=== PATIENT | female | born 1940 | race Caucasian/White ===

== ENCOUNTER → 2016-05-28 | Outpatient (CLI) | payer MEDICARE, OTHER ==
--- NOTE | 2016-05-29 11:06 | MM ---
Reason for exam: screening (asymptomatic). Last mammogram was performed 1 year and 2 months ago. Physical Findings: A clinical breast exam by your physician is recommended on an annual basis and results should be correlated with mammographic findings. MG 3D Screening Mammo W/Cad Bilateral CC and MLO view(s) were taken. Prior study comparison: March 17, 2015, mammogram, performed at [facility]. April 01, 2014, mammogram, performed at [facility]. The breast tissue is heterogeneously dense. This may lower the sensitivity of mammography. No significant changes when compared with prior studies. ASSESSMENT: Benign, BI-RAD 2 RECOMMENDATION: Routine screening mammogram of both breasts in 1 year.
== END | disposition home or self-care (01) ==
LOC: RADMAMWWP 06:50
PROVIDERS: ATTEND Family Medicine
DX: Z12.31 Encounter for screening mammogram for malignant neoplasm of breast (principal)
CPT/HCPCS: 77052; 77063; G0202

== ENCOUNTER 2016-08-18 10:51 | Emergency (ER) | payer MEDICARE, OTHER ==
--- NOTE | 2016-08-18 12:04 | ED ---
Fall HPI - General Chief Complaint: Fall Stated Complaint: FALL, HEAD AND FACIAL INJURY Time Seen by Provider: 08/18/16 11:32 Source: patient Mode of arrival: ambulatory - History of Present Illness Initial Comments: 76-year-old female patient presents to emergency department after splinting a fall at home around 02 15. Patient states she tripped over a box and fell hitting her face and head on a doorknob. She denies any loss of consciousness, but states she has been seeing wavy lines in her vision since the fall. Patient denies any headache, neck pain, back pain, nausea, or vomiting since the incident. Patient states she also did strike her left shoulder and left knee, and is complaining of some tingling to the fourth and fifth digit on the left hand. Patient denies any complaints of left shoulder or the left knee and denies any issues with range of motion. Denies any chest pain, shortness of breath, weakness, or dizziness. - Related Data Home Medications Medication Instructions Recorded Confirmed Albuterol Inhaler [Ventolin Hfa 1 puff INHALATION DIRECTED PRN 09/20/1508/18 Inhaler] Multivitamins, Thera [Multivitamin] 1 tab PO DAILY 09/20/15 08/18/16 Allergies Allergy/AdvReac Type Severity Reaction Status Date / Time codeine Allergy headache Verified 08/18/16 11:27 sulfamethoxazole Allergy "does not Verified 08/18/16 11:27 [From Bactrim] work" trimethoprim [From Bactrim] Allergy "does not Verified 08/18/16 11:27 work" Review of Systems ROS Statement: Those systems with pertinent positive or pertinent negative responses have been documented in the HPI. ROS Other: All systems not noted in ROS Statement are negative. Past Medical History Past Medical History: Asthma History of Any Multi-Drug Resistant Organisms: None Reported Past Surgical History: Bladder Surgery, Hysterectomy Past Psychological History: No Psychological Hx Reported Smoking Status: Never smoker Past Alcohol Use History: None Reported Past Drug Use History: None Reported General Exam Limitations: no limitations General appearance: alert, in no apparent distress Head exam: Present: other (Abrasion to left cheek) Eye exam: Present: normal appearance, PERRL, EOMI. Absent: scleral icterus, conjunctival injection, periorbital swelling ENT exam: Present: normal exam, normal oropharynx, mucous membranes moist Neck exam: Present: normal inspection, full ROM. Absent: tenderness, meningismus, lymphadenopathy Respiratory exam: Present: normal lung sounds bilaterally. Absent: respiratory distress, wheezes, rales, rhonchi, stridor Cardiovascular Exam: Present: regular rate, normal rhythm, normal heart sounds. Absent: systolic murmur, diastolic murmur, rubs, gallop, clicks GI/Abdominal exam: Present: soft, normal bowel sounds. Absent: distended, tenderness, guarding, rebound, rigid Extremities exam: Present: normal inspection, full ROM, normal capillary refill , other (Ecchymosis noted to anterior left knee, no swelling. Full range of motion to left shoulder, left elbow, left wrist, left knee without crepitus.). Absent: tenderness, pedal edema, joint swelling, calf tenderness Back exam: Present: normal inspection. Absent: tenderness Neurological exam: Present: alert, oriented X3, CN II-XII intact Psychiatric exam: Present: normal affect, normal mood Skin exam: Present: warm, dry, intact, normal color. Absent: rash Course Vital Signs 08/18/16 11:23 Temperature 97.4 F L Pulse Rate 69 Respiratory 16 Rate Blood Pressure 201/85 O2 Sat by Pulse 99 Oximetry Medical Decision Making - Medical Decision Making 76-year-old female patient presents for evaluation after a fall this morning. Patient did have a CT of the brain and C-spine which showed no acute osseous abnormalities. No intracranial hemorrhage, mass effect, or midline shift. Patient will be discharged home with instructions regarding return parameters. Instructed to follow-up with primary care physician one to 2 days for recheck. Instructed to return for any worsening, new, or concerning symptoms. - Radiology Data Radiology results: report reviewed CT of the pain and cervical spine without contrast impression by Dr. Johns reveals no acute fracture or dislocation evident in the cervical spine. Mild loss when necessary plate height of T1 and T2 which may be chronic. No acute intracranial hemorrhage, mass effect, or midline shift is seen. Disposition Clinical Impression: Head injury, Contusion, Abrasion Disposition: HOME SELF-CARE Condition: Stable Instructions: Fall Prevention for Older Adults (ED), Head Injury (ED), Abrasion (ED), Contusion in Adults (ED) Additional Instructions: Return for any new, worsening, or concerning symptoms. Follow-up with primary care physician for recheck in one to 2 days. Referrals: Davis Mckeon MD [Primary Care Provider] - 1-2 days Time of Disposition: 12:31
--- NOTE | 2016-08-18 12:23 | CT ---
EXAMINATION TYPE: CT brain demetris salas con DATE OF EXAM: 08/18/2016 12:09 PM COMPARISON: NONE HISTORY: fall CT DLP: 1459.8 mGycm Automated exposure control for dose reduction was used. TECHNIQUE: CT scan of the head and cervical spine are performed without contrast. FINDINGS: There is no acute intracranial hemorrhage, mass effect, or midline shift identified. The ventricles and sulci are within normal limits in size. The globes are intact and the visualized sin uses are clear. Assessment spinal canal limited due to noncontrast technique. There is multilevel degenerative disc d isease and posterior spondylosis with arthropathy. Multilevel foraminal encroachment. Mild loss of barbosa perior endplate height at T1 and T2 with no evidence of retropulsion. Posterior elements intact. IMPRESSION: 1. There is no acute fracture or dislocation evident in the cervical spine. There is mild loss superi or endplate height of T1 and T2 which may be chronic. Correlate clinically to exclude acute mild supe rior endplate deformity. No retropulsion or canal stenosis. No posterior endplate involvement. Bone s can or MRI could obtain a follow up basis to exclude chronicity of the minimal superior endplate comp ression deformity 2. No acute intracranial hemorrhage, mass effect, or midline shift is seen.
[2016-08-18 12:35] VITALS: BP 163/74; PULSE 58; RESP 18; TEMP 97.7
== END 2016-08-18 12:50 | disposition home or self-care (01) ==
LOC: EC 10:51
DX: S80.02XA Contusion of left knee, initial encounter (principal); S00.81XA Abrasion of other part of head, initial encounter; Z79.899 Other long term (current) drug therapy; Z88.1 Allergy status to other antibiotic agents; Z88.5 Allergy status to narcotic agent; W01.198A Fall on same level from slipping, tripping and stumbling with subsequent striking against other object, initial encounter; Y92.008 Other place in unspecified non-institutional (private) residence as the place of occurrence of the external cause
CPT/HCPCS: 70450; 72125; 99283

== ENCOUNTER 2016-10-09 09:14 | Observation (INO) | payer MEDICARE, OTHER ==
[2016-10-09] MEDS ORDERED: SODIUM CHLORIDE 0.9% 500 ML IV STA (09:40)
[2016-10-09] MEDS ORDERED: ASPIRIN 81 MG CHEW PO STA (09:40)
--- NOTE | 2016-10-09 09:47 | ED ---
Back Pain HPI - General Chief Complaint: Back Pain/Injury Stated Complaint: back and abd pain Time Seen by Provider: 10/09/16 09:33 Source: patient, RN notes reviewed Limitations: no limitations - History of Present Illness Initial Comments: 76-year-old female presents to the emergency Department chief complaint of left- sided shoulder pain. Patient states that she has been feeling off for the past 10 days or so. Patient states she is feeling weak she is feeling nauseous she is not feeling like herself. Patient states that then today she developed discomfort of left shoulder pain that radiated to the left chest. Patient states that it is sometimes tender to touch also also feels deeper and more sedated severe than that. Patient denies any diaphoresis with this any actual vomiting but she has had the nausea. Patient denies any use of the shoulder any injury to the shoulder. Patient states she was concerned due to her symptoms so she thought that she should be evaluated. Patient denies any recent fever, chills, shortness of breath, back pain, abdominal pain, vomiting, numbness or tingling, dysuria or hematuria, constipation or diarrhea, headaches or visual changes, or any other current symptoms. - Related Data Home Medications Medication Instructions Recorded Confirmed Albuterol Inhaler [Ventolin Hfa 1 puff INHALATION DIRECTED PRN 09/20/1510/09 Inhaler] Multivitamins, Thera [Multivitamin] 1 tab PO DAILY 09/20/15 10/09/16 Allergies Allergy/AdvReac Type Severity Reaction Status Date / Time codeine Allergy headache Verified 10/09/16 09:42 sulfamethoxazole Allergy "does not Verified 10/09/16 09:42 [From Bactrim] work" trimethoprim [From Bactrim] Allergy "does not Verified 10/09/16 09:42 work" Review of Systems ROS Statement: Those systems with pertinent positive or pertinent negative responses have been documented in the HPI. ROS Other: All systems not noted in ROS Statement are negative. Past Medical History Past Medical History: Asthma History of Any Multi-Drug Resistant Organisms: None Reported Past Surgical History: Bladder Surgery, Hysterectomy Past Psychological History: No Psychological Hx Reported Smoking Status: Never smoker Past Alcohol Use History: None Reported Past Drug Use History: None Reported General Exam - General Exam Comments Initial Comments: General: The patient is awake and alert, in no distress, and does not appear acutely ill. Eye: Pupils are equal, round and reactive to light, extra-ocular movements are intact; there is normal conjunctiva bilaterally. No signs of icterus. Ears, nose, mouth and throat: There are moist mucous membranes and no oral lesions. Neck: The neck is supple, there is no tenderness. Cardiovascular: There is a regular rate and rhythm. No murmur, rub or gallop is appreciated. Respiratory: Lungs are clear to auscultation, respirations are non-labored, breath sounds are equal. No wheezes, stridor, rales, or rhonchi. Gastrointestinal: Soft, non-distended, non-tender abdomen without masses or organomegaly noted. There is no rebound or guarding present. No CVA tenderness. Bowel sounds are unremarkable. Back: There is no tenderness to palpation in the midline. There is no obvious deformity. No rashes noted. Musculoskeletal: Normal ROM, patient does have some upper tenderness to the left shoulder. Tenderness along left lateral chest wall as well., There is no pedal edema. There is no calf tenderness or swelling. Sensation intact. Pulses equal bilaterally 2+. Neurological: CN II-XII intact, There are no obvious motor or sensory deficits. Coordination appears grossly intact. Speech is normal. Skin: Skin is warm and dry and no rashes or lesions are noted. Psychiatric: Cooperative, appropriate mood & affect, normal judgment. Limitations: no limitations Course Vital Signs 10/09/16 10/09/16 10/09/16 09:15 09:30 11:38 Temperature 98.0 F 97.7 F 97.7 F Pulse Rate 74 68 65 Respiratory 17 16 16 Rate Blood Pressure 151/77 165/73 150/70 O2 Sat by Pulse 98 98 97 Oximetry - Reevaluation(s) Reevaluation #1: 10/09/16 12:26 Patient is currently pain free. Medical Decision Making - Medical Decision Making 76-year-old female presents with nausea and left shoulder pain. This time there is concern there could be a cardiac component due to the nausea with the patient's pain. Also with radiation into the chest. At this time we will admit the patient for cardiac rule out. This is discussed with the patient and she is in agreement with plan. - Lab Data Result diagrams: 10/09/16 10:05 10/09/16 10:05 Lab Results 10/09/16 10/09/1610/09/17 Range/Units 10:05 10:05 10:05 WBC 16.7 H (3.8-10.6) k/uL RBC 4.25 (3.80-5.40) m/uL Hgb 13.1 (11.4-16.0) gm/dL Hct 39.7 (34.0-46.0) % MCV 93.2 (80.0-100.0) fL MCH 30.8 (25.0-35.0) pg MCHC 33.1 (31.0-37.0) g/dL RDW 13.6 (11.5-15.5) % Plt Count 324 (150-450) k/uL Neutrophils % 87 % Lymphocytes % 6 % Monocytes % 7 % Eosinophils % 0 % Basophils % 0 % Neutrophils # 14.4 H (1.3-7.7) k/uL Lymphocytes # 1.0 (1.0-4.8) k/uL Monocytes # 1.1 H (0-1.0) k/uL Eosinophils # 0.0 (0-0.7) k/uL Basophils # 0.0 (0-0.2) k/uL PT (9.0-12.0) sec INR (<1.1) APTT (22.0-30.0) sec D-Dimer (<0.60) mg/L FEU Sodium 140 (137-145) mmol/L Potassium 4.3 (3.5-5.1) mmol/L Chloride 106 (98-107) mmol/L Carbon Dioxide 22 (22-30) mmol/L Anion Gap 12 mmol/L BUN 19 H (7-17) mg/dL Creatinine 0.94 (0.52-1.04) mg/dL Est GFR (MDRD) Af Amer >60 (>60 ml/min/1.73 sqM) Est GFR (MDRD) Non-Af 58 (>60 ml/min/1.73 sqM) Glucose 107 H (74-99) mg/dL Calcium 9.4 (8.4-10.2) mg/dL Magnesium 1.9 (1.6-2.3) mg/dL Total Bilirubin 1.0 (0.2-1.3) mg/dL AST 9 L (14-36) U/L ALT 29 (9-52) U/L Alkaline Phosphatase 88 (38-126) U/L Total Creatine Kinase 88 (30-135) U/L CK-MB (CK-2) 1.8 (0.0-2.4) ng/mL CK-MB (CK-2) Rel Index 2.0 Troponin I <0.012 (0.000-0.034) ng/mL Total Protein 7.0 (6.3-8.2) g/dL Albumin 4.2 (3.5-5.0) g/dL Urine Color Urine Appearance (Clear) Urine pH (5.0-8.0) Ur Specific [place] (1.001-1.035) Urine Protein (Negative) Urine Glucose (UA) (Negative) Urine Ketones (Negative) Urine Blood (Negative) Urine Nitrite (Negative) Urine Bilirubin (Negative) Urine Urobilinogen (<2.0) mg/dL Ur Leukocyte Esterase (Negative) 10/09/16 10/09/16 10/09/16 Range/Units 10:05 10:05 11:00 WBC (3.8-10.6) k/uL RBC (3.80-5.40) m/uL Hgb (11.4-16.0) gm/dL Hct (34.0-46.0) % MCV (80.0-100.0) fL MCH (25.0-35.0) pg MCHC (31.0-37.0) g/dL RDW (11.5-15.5) % Plt Count (150-450) k/uL Neutrophils % % Lymphocytes % % Monocytes % % Eosinophils % % Basophils % % Neutrophils # (1.3-7.7) k/uL Lymphocytes # (1.0-4.8) k/uL Monocytes # (0-1.0) k/uL Eosinophils # (0-0.7) k/uL Basophils # (0-0.2) k/uL PT 10.4 (9.0-12.0) sec INR 1.0 (<1.1) APTT 23.7 (22.0-30.0) sec D-Dimer 1.24 H (<0.60) mg/L FEU Sodium (137-145) mmol/L Potassium (3.5-5.1) mmol/L Chloride (98-107) mmol/L Carbon Dioxide (22-30) mmol/L Anion Gap mmol/L BUN (7-17) mg/dL Creatinine (0.52-1.04) mg/dL Est GFR (MDRD) Af Amer (>60 ml/min/1.73 sqM) Est GFR (MDRD) Non-Af (>60 ml/min/1.73 sqM) Glucose (74-99) mg/dL Calcium (8.4-10.2) mg/dL Magnesium (1.6-2.3) mg/dL Total Bilirubin (0.2-1.3) mg/dL AST (14-36) U/L ALT (9-52) U/L Alkaline Phosphatase (38-126) U/L Total Creatine Kinase (30-135) U/L CK-MB (CK-2) (0.0-2.4) ng/mL CK-MB (CK-2) Rel Index Troponin I (0.000-0.034) ng/mL Total Protein (6.3-8.2) g/dL Albumin (3.5-5.0) g/dL Urine Color Light Yellow Urine Appearance Clear (Clear) Urine pH 6.0 (5.0-8.0) Ur Specific [place] 1.006 (1.001-1.035) Urine Protein Negative (Negative) Urine Glucose (UA) Negative (Negative) Urine Ketones Negative (Negative) Urine Blood Negative (Negative) Urine Nitrite Negative (Negative) Urine Bilirubin Negative (Negative) Urine Urobilinogen <2.0 (<2.0) mg/dL Ur Leukocyte Esterase Negative (Negative) - EKG Data -: EKG Interpreted by 10/09/16 11:12 normal sinus rhythm 65 bpm, normal axis, no atopy, no S-T depressions or elevations, - Radiology Data Radiology results: report reviewed, image reviewed Disposition Clinical Impression: Unstable angina Disposition: ADMITTED IP TO THIS [facility] Condition: Stable Referrals: Davis Mckeon MD [Primary Care Provider] - 1-2 days Time of Disposition: 12: Decision Date: 10/09/16 Decision Time: 12:27
--- NOTE | 2016-10-09 10:22 | XR ---
EXAMINATION TYPE: XR chest 2V DATE OF EXAM: 10/09/2016 10:19 AM COMPARISON: NONE TECHNIQUE: PA and lateral views submitted. HISTORY: Chest pain FINDINGS: The lungs are clear and there is no pneumothorax, pleural effusion, or focal pneumonia. Degenerativ e change of the spine noted. IMPRESSION: 1. No acute process.
--- NOTE | 2016-10-09 10:23 | XR ---
EXAMINATION TYPE: XR shoulder complete LT DATE OF EXAM: 10/09/2016 10:19 AM COMPARISON: NONE HISTORY: Pain TECHNIQUE: Three views are submitted. FINDINGS: The osseous structures are intact. There is no acute fracture or dislocation. Mild arthropathy AC meet int. Diffuse osteopenia. Ossification along the inferior margin of the humeral head is nonspecific ma y be post arthritic. There does appear to be narrowing of the glenohumeral joint. IMPRESSION: 1. Arthropathy of the shoulders.
[2016-10-09 10:27] LABS: Basophils % (A) 0 %; CH 31.1; CHCM 33.5; Eosinophils % (A) 0 %; HCT 39.7 % (34.0-46.0); HDW 2.19; HGB 13.1 gm/dL (11.4-16.0); Luc # (Auto) 0.14; Luc % (Auto) 1; Lymphocytes % (A) 6 %; MCH 30.8 pg (25.0-35.0); MCHC 33.1 g/dL (31.0-37.0); MCV 93.2 fL (80.0-100.0); Mean Platelet Volume 7.8; Monocytes # (A) 1.1 k/uL (0-1.0); Monocytes % (A) 7 %; Neutrophils # (A) 14.4 k/uL (1.3-7.7); Neutrophils % (A) 87 %; RBC 4.25 m/uL (3.80-5.40); RDW 13.6 % (11.5-15.5); WBC 16.7 k/uL (3.8-10.6); WBC (Perox) 16.29
[2016-10-09 10:31] LABS: ALT 29 U/L (9-52); AST 9 U/L (14-36); Alkaline Phosphatase 88 U/L (38-126); Anion Gap 12 mmol/L; Blood Urea Nitrogen 19 mg/dL (7-17); Calcium 9.4 mg/dL (8.4-10.2); Carbon Dioxide 22 mmol/L (22-30); Chloride 106 mmol/L (98-107); Glucose 107 mg/dL (74-99); Magnesium 1.9 mg/dL (1.6-2.3); Non-African American GFR(MDRD) 58 (>60 ml/min/1.73 sqM); Potassium 4.3 mmol/L (3.5-5.1); Sodium 140 mmol/L (137-145)
[2016-10-09 10:34] LABS: Partial Thromboplastin Time 23.7 sec (22.0-30.0); Prothrombin Time 10.4 sec (9.0-12.0)
[2016-10-09 10:51] LABS: Creatine Kinase 88 U/L (30-135)
[2016-10-09 11:03] LABS: Creatine Kinase MB 1.8 ng/mL (0.0-2.4); Troponin I <0.012 ng/mL (0.000-0.034)
[2016-10-09 11:05] LABS: Appearance,Urine Clear (Clear); Bilirubin,Urine Negative (Negative); Glucose,Urine (UA) Negative (Negative); Ketones,Urine Negative (Negative); Leukocyte Esterase,Urine Negative (Negative); Nitrite,Urine Negative (Negative); Protein,Urine Negative (Negative); Specific Gravity,Urine 1.006 (1.001-1.035); UA Billing (MACRO vs. MICRO) CHEM; Urobilinogen,Urine <2.0 mg/dL (<2.0)
[2016-10-09] MEDS ORDERED: RX INFO: IV CONTRAST WAS GIVEN 1 EACH MISC MISCELLANE PRN (11:40)
--- NOTE | 2016-10-09 12:19 | CT ---
EXAMINATION TYPE: CT angio chest DATE OF EXAM: 10/09/2016 11:58 AM COMPARISON: NONE HISTORY: Patient complains of upper back pain and pain beneath left breast. CT DLP: 320.5 mGycm Automated exposure control for dose reduction was used. CONTRAST: CTA scan of the thorax is performed with IV Contrast, patient injected with 80 mL of Visipaque 320, p ulmonary embolism protocol. FINDINGS: There is a 1.4 cm fatty deposit in a subpleural location at the right lung base. This likel y represents a small lipoma. There is dependent atelectasis in the dependent portions of the lungs. There is no significant axillary, internal mammary, mediastinal or hilar adenopathy. The contrast bolus is suboptimal. There are no large pulmonary emboli. The aorta is normal in caliber without evidence of dissection. There is no pleural or pericardial fluid. The heart is enlarged. There is a small sliding hiatal hernia. There is evidence of old granulomatous disease within the spleen. The remainder the visualized upper abdomen are unremarkable. There is mild hypertrophic spondylosis within the spine. No bony destructive lesion is seen. IMPRESSION: 1. THIS EXAMINATION IS SUBOPTIMAL BUT NEGATIVE FOR LARGE PULMONARY EMBOLI. 2. CARDIOMEGALY. 3. 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 4. 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 5. SMALL SLIDING HIATAL HERNIA. 6. MILD DEGENERATIVE CHANGE WITHIN THE SPINE.
[2016-10-09] MEDS ORDERED: HEPARIN SODIUM,PORCINE 5,000 UNIT/ML 1 ML VIAL IV ONE (12:28)
[2016-10-09] MEDS ORDERED: NITROGLYCERIN SL TABS 0.4 MG TAB SUBLINGUAL PRN (12:28)
[2016-10-09] MEDS ORDERED: ALBUTEROL NEBULIZED 2.5 MG/3 ML INHALATION PRN (12:29)
[2016-10-09] MEDS ORDERED: HEPARIN SODIUM,PORCINE/D5W PMX 25,000 UNIT in DEXTROSE/WATER 1 500ML.BAG IV SCH (12:30)
[2016-10-09] MEDS: SODIUM CHLORIDE 0.9% 1,000 ML IV SCH (13:44)
[2016-10-09 16:09] LABS: Creatine Kinase 70 U/L (30-135)
[2016-10-09 16:21] LABS: Creatine Kinase MB 1.8 ng/mL (0.0-2.4); Troponin I <0.012 ng/mL (0.000-0.034)
--- NOTE | 2016-10-09 16:32 | P.HPIM ---
History of Present Illness H&P Date: 10/09/16 Chief Complaint: Chest pain This is a pleasant 76-year-old lady patient of Dr. Lincoln Mckeon, she has underlying history off ALLERGY rhinitis or reactive airway disease and hyperlipidemia diet-controlled otherwise is in good health, presented to emergency room secondary to chest discomfort however she described this as a left hip pain aggravated by deep inspiration, and a left shoulder pain patient had persistence of these symptoms and was subsequently seen in emergency room. Patient has been fatigued for the past 10 days, no fever no chills no nausea no vomiting, patient does not have any previous MN no previous PE in the past which she took Aleve for the discomfort, patient denies any history of edema PE DVT no previous cardiac workup in the past 1. 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, and old granulomatous disease of the spleen, small sliding hiatal hernia Emergency room she does have a normal sinus rhythm with incomplete right bundle branch block, normal EKG otherwise no QT prolongation d-dimer was elevated at 1.24 troponins are 0.012 and 0.012, urinalysis negative Review of Systems Constitutional: Reports as per HPI, Reports anorexia, Reports lethargy, Denies chills, Denies chronic headaches, Denies chronic pain, Denies daytime sleepiness , Denies fatigue, Denies fever, Denies malaise, Denies night sweats, Denies poor appetite, Denies sweats, Denies weakness, Denies weight gain, Denies weight loss Ears, nose, mouth and throat: Reports as per HPI, Denies ant. neck pain, Denies bleeding gums, Denies dental pain, Denies dysphagia, Denies epistaxis, Denies headache, Denies hoarseness, Denies mouth pain, Denies nasal congestion, Denies nasal discharge, Denies neck fullness/pressure, Denies neck lump, Denies nose pain, Denies odynophagia, Denies post-nasal drip, Denies sinus pain, Denies sinus pressure, Denies swelling in mouth, Denies swelling in throat, Denies sore throat, Denies vertigo, Denies voice changes Cardiovascular: Reports as per HPI, Reports chest pain Respiratory: Reports as per HPI, Denies congestion, Denies cough, Denies cough with sputum, Denies dyspnea, Denies excessive sputum, Denies hemoptysis, Denies home oxygen, Denies pain, Denies pain on inspiration, Denies pleurisy, Denies respiratory infections, Denies sleep apnea, Denies snoring, Denies wheezing Gastrointestinal: Reports as per HPI, Denies abdominal pain, Denies belching, Denies bloating, Denies BRBPR, Denies change in bowel habits, Denies coffee ground emesis, Denies constipation, Denies diarrhea, Denies dyspepsia, Denies early satiety, Denies excessive gas, Denies heartburn, Denies hematemesis, Denies hematochezia, Denies indigestion, Denies jaundice, Denies lactose intolerance, Denies loss of appetite, Denies melena, Denies nausea, Denies vomiting Genitourinary: Reports as per HPI, Denies abnormal vaginal bleeding, Denies decreased libido, Denies difficulty conceiving, Denies difficulty voiding, Denies dysmenorrhea, Denies dyspareunia, Denies dysuria, Denies flank pain, Denies genital sores, Denies hematuria, Denies hot flashes, Denies incomplete emptying, Denies kidney stones, Denies menorrhagia, Denies mixed incontinence, Denies nocturia, Denies pelvic pain, Denies post void dribbling, Denies , Denies prolapse symptoms, Denies stress incontinence, Denies urge incontinence , Denies urgency, Denies urinary frequency, Denies vaginal discharge, Denies vaginal dryness, Denies vaginal itching, Denies vaginal odor Menstruation: Reports as per HPI Musculoskeletal: Reports as per HPI Integumentary: Reports as per HPI Neurological: Reports as per HPI Psychiatric: Reports as per HPI Endocrine: Reports as per HPI, Denies cold intolerance, Denies deepening of the voice, Denies excessive sweating, Denies excessive thirst, Denies fatigue, Denies flushing, Denies heat intolerance, Denies high blood sugars, Denies increase in ring/shoe/hat size, Denies low blood sugars, Denies nocturia, Denies palpitations, Denies polydipsia, Denies polyphagia, Denies polyuria, Denies proptosis, Denies recent glucocorticoid use, Denies thyroid mass, Denies weight change Hematologic/Lymphatic: Denies as per HPI, Denies easy bleeding, Denies easy bruising, Denies lymphadenopathy, Denies lymphedema, Denies thrombophilia Allergic/Immunologic: Reports as per HPI, Denies allergic rhinitis, Denies anaphylaxis, Denies angioedema, Denies gluten intolerance, Denies persistent infections, Denies seasonal allergies, Denies urticaria, Denies wheezing Past Medical History Past Medical History: Asthma Additional Past Medical History / Comment(s): ASTHMA/ALLERGIES, CYSTOCELE/ UTERINE PROLAPSE(HAD SX), MIGRAINES, VARICOSE VEINS, FALL IN PAST FX RT FOOT-NO SX REQUIRED History of Any Multi-Drug Resistant Organisms: None Reported Past Surgical History: Bladder Surgery, Hysterectomy Additional Past Surgical History / Comment(s): CYSTOCELE REPAURE, MARCI EYE LID SX , MARCI CATARACTS, Past Anesthesia/Blood Transfusion Reactions: Motion Sickness Past Psychological History: No Psychological Hx Reported Additional Psychological History / Comment(s): PT IS INDEPENDANT, 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 NO HOME CARE SERVICES, NO MEDICAL EQUIPMENT. Smoking Status: Never smoker Past Alcohol Use History: Occasional Past Drug Use History: None Reported - Past Family History Father Family Medical History: Congestive Heart Failure (CHF) Additional Family Medical History / Comment(s): JARAD Mother Family Medical History: CVA/TIA, Diabetes Mellitus, Hypertension Additional Family Medical History / Comment(s): DIET CONTROLLED DM, STROKE - AT AGE 93. Medications and Allergies Home Medications Medication Instructions Recorded Confirmed Type Albuterol Inhaler [Ventolin Hfa 1 puff INHALATION RT-Q4H PRN 09/20/15 10/09/16 History Inhaler] Multivitamins, Thera [Multivitamin] 1 tab PO DAILY 09/20/15 10/09/16 History Allergies Allergy/AdvReac Type Severity Reaction Status Date / Time codeine Allergy headache Verified 10/09/16 09:42 sulfamethoxazole Allergy "does not Verified 10/09/16 09:42 [From Bactrim] work" trimethoprim [From Bactrim] Allergy "does not Verified 10/09/16 09:42 work" Physical Exam Vitals: Vital Signs Temp Pulse Pulse Resp BP BP Pulse Ox 10/09/16 14:31 98.1 F 67 18 128/60 99 10/09/16 13:32 68 16 149/72 98 10/09/16 13:00 98.8 F 69 16 146/69 99 10/09/16 11:38 97.7 F 65 16 150/70 97 10/09/16 09:30 97.7 F 68 16 165/73 98 10/09/16 09:15 98.0 F 74 17 151/77 98 Intake and Output 10/09/16 10/09/16 10/09/16 06:59 14:59 22:59 Other: Weight 87.8 kg Patient Weight 10/10/16 06:59 Weight 87.8 kg - Constitutional General appearance: average body habitus, cooperative, no acute distress - EENT Eyes: anicteric sclerae, EOMI, PERRLA, dentition normal, normal appearance ENT: hearing grossly normal, NA/AT, normal oropharynx - Neck Neck: normal ROM - Respiratory Respiratory: bilateral: CTA, negative: diminished, dullness, rales, rhonchi - Cardiovascular Rhythm: regular Heart sounds: normal: S1, S2 Abnormal Heart Sounds: no systolic murmur, no diastolic murmur, no rub, no S3 Gallop, no S4 Gallop, no click, no other - Gastrointestinal General gastrointestinal: normal bowel sounds, soft - Integumentary Integumentary: normal, normal turgor - Neurologic Neurologic: CNII-XII intact - Musculoskeletal Musculoskeletal: gait normal, strength equal bilaterally - Psychiatric Psychiatric: A&O x's 3, appropriate affect, intact judgment & insight Results CBC & Chem 7: 10/09/16 10:05 10/09/16 10:05 Labs: Abnormal Lab Results - Last 24 Hours (Table) 10/09/16 10/09/16 10/09/16 Range/Units 10:05 10:05 10:05 WBC 16.7 H (3.8-10.6) k/uL Neutrophils # 14.4 H (1.3-7.7) k/uL Monocytes # 1.1 H (0-1.0) k/uL D-Dimer 1.24 H (<0.60) mg/L FEU BUN 19 H (7-17) mg/dL Glucose 107 H (74-99) mg/dL AST 9 L (14-36) U/L Laboratory Results WBC 16.7 k/uL (3.8-10.6) H 10/09/16 10:05 RBC 4.25 m/uL (3.80-5.40) 10/09/16 10:05 Hgb 13.1 gm/dL (11.4-16.0) 10/09/16 10:05 Hct 39.7 % (34.0-46.0) 10/09/16 10:05 MCV 93.2 fL (80.0-100.0) 10/09/16 10:05 MCH 30.8 pg (25.0-35.0) 10/09/16 10:05 MCHC 33.1 g/dL (31.0-37.0) 10/09/16 10:05 RDW 13.6 % (11.5-15.5) 10/09/16 10:05 Plt Count 324 k/uL (150-450) 10/09/16 10:05 Neutrophils % 87 % 10/09/16 10:05 Lymphocytes % 6 % 10/09/16 10:05 Monocytes % 7 % 10/09/16 10:05 Eosinophils % 0 % 10/09/16 10:05 Basophils % 0 % 10/09/16 10:05 Neutrophils # 14.4 k/uL (1.3-7.7) H 10/09/16 10:05 Lymphocytes # 1.0 k/uL (1.0-4.8) 10/09/16 10:05 Monocytes # 1.1 k/uL (0-1.0) H 10/09/16 10:05 Eosinophils # 0.0 k/uL (0-0.7) 10/09/16 10:05 Basophils # 0.0 k/uL (0-0.2) 10/09/16 10:05 PT 10.4 sec (9.0-12.0) 10/09/16 10:05 INR 1.0 (<1.1) 10/09/16 10:05 APTT 23.7 sec (22.0-30.0) 10/09/16 10:05 D-Dimer 1.24 mg/L FEU (<0.60) H 10/09/16 10:05 Sodium 140 mmol/L (137-145) 10/09/16 10:05 Potassium 4.3 mmol/L (3.5-5.1) 10/09/16 10:05 Chloride 106 mmol/L (98-107) 10/09/16 10:05 Carbon Dioxide 22 mmol/L (22-30) 10/09/16 10:05 Anion Gap 12 mmol/L 10/09/16 10:05 BUN 19 mg/dL (7-17) H 10/09/16 10:05 Creatinine 0.94 mg/dL (0.52-1.04) 10/09/16 10:05 Est GFR (MDRD) Af Amer >60 (>60 ml/min/1.73 sqM) 10/09/16 10:05 Est GFR (MDRD) Non-Af 58 (>60 ml/min/1.73 sqM) 10/09/16 10:05 Glucose 107 mg/dL (74-99) H 10/09/16 10:05 Calcium 9.4 mg/dL (8.4-10.2) 10/09/16 10:05 Magnesium 1.9 mg/dL (1.6-2.3) 10/09/16 10:05 Total Bilirubin 1.0 mg/dL (0.2-1.3) 10/09/16 10:05 AST 9 U/L (14-36) L 10/09/16 10:05 ALT 29 U/L (9-52) 10/09/16 10:05 Alkaline Phosphatase 88 U/L (38-126) 10/09/16 10:05 Total Creatine Kinase 70 U/L (30-135) 10/09/16 15:30 CK-MB (CK-2) 1.8 ng/mL (0.0-2.4) 10/09/16 15:30 CK-MB (CK-2) Rel Index 2.6 10/09/16 15:30 Troponin I <0.012 ng/mL (0.000-0.034) 10/09/16 15:30 Total Protein 7.0 g/dL (6.3-8.2) 10/09/16 10:05 Albumin 4.2 g/dL (3.5-5.0) 10/09/16 10:05 Urine Color Light Yellow 10/09/16 11:00 Urine Appearance Clear (Clear) 10/09/16 11:00 Urine pH 6.0 (5.0-8.0) 10/09/16 11:00 Ur Specific [place] 1.006 (1.001-1.035) 10/09/16 11:00 Urine Protein Negative (Negative) 10/09/16 11:00 Urine Glucose (UA) Negative (Negative) 10/09/16 11:00 Urine Ketones Negative (Negative) 10/09/16 11:00 Urine Blood Negative (Negative) 10/09/16 11:00 Urine Nitrite Negative (Negative) 10/09/16 11:00 Urine Bilirubin Negative (Negative) 10/09/16 11:00 Urine Urobilinogen <2.0 mg/dL (<2.0) 10/09/16 11:00 Ur Leukocyte Esterase Negative (Negative) 10/09/16 11:00 Thrombosis Risk Factor Assmnt - Choose All That Apply Each Risk Factor Represents 3 Points: Age 75 years or older Thrombosis Risk Factor Assessment Total Risk Factor Score: 3 Thrombosis Risk Factor Assessment Level: Moderate Risk Assessment and Plan Plan: 1. 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 Known history of reactive airway disease without any exacerbation 3. Degenerative joint disease with senile or she processes is expected, patient can benefit from outpatient bone density, 4. Known history of hyperlipidemia on diet modification
[2016-10-09 21:47] LABS: Creatine Kinase 68 U/L (30-135)
[2016-10-09 22:00] LABS: Creatine Kinase MB 1.6 ng/mL (0.0-2.4); Troponin I <0.012 ng/mL (0.000-0.034)
[2016-10-10 07:36] LABS: Basophils % (A) 0 %; CH 30.9; CHCM 32.7; Eosinophils # (A) 0.3 k/uL (0-0.7); Eosinophils % (A) 4 %; HCT 37.4 % (34.0-46.0); HDW 2.22; HGB 12.4 gm/dL (11.4-16.0); Luc # (Auto) 0.16; Luc % (Auto) 2; Lymphocytes # (A) 1.5 k/uL (1.0-4.8); Lymphocytes % (A) 19 %; MCH 31.5 pg (25.0-35.0); MCHC 33.1 g/dL (31.0-37.0); Mean Platelet Volume 7.7; Monocytes # (A) 0.7 k/uL (0-1.0); Monocytes % (A) 8 %; Neutrophils # (A) 5.4 k/uL (1.3-7.7); Neutrophils % (A) 67 %; RBC 3.94 m/uL (3.80-5.40); RDW 13.7 % (11.5-15.5); WBC (Perox) 8.67
[2016-10-10 08:02] LABS: Cholesterol 164 mg/dL (<200); HDL Cholesterol 63 mg/dL (40-60); Triglycerides 61 mg/dL (<150)
[2016-10-10] MEDS ORDERED: DOBUTamine DRIP for NUC MED 500 MG in DEXTROSE/WATER 1 250ML.BAG IV ONE (08:43)
[2016-10-10] MEDS ORDERED: ASPIRIN 325 MG TAB PO SCH (09:00)
--- NOTE | 2016-10-10 09:33 | CONS ---
DATE OF CONSULTATION: Mrs. Hanley is a 76-year-old female patient of Dr. Lincoln Mckeon who presented with pain in the nape of neck and extended to the left shoulder and then around the chest to the front of the chest. This happened after she was mowing the lawn. No other associated symptoms. REVIEW OF SYSTEMS: No fever, chills or rigors. No cough or expectoration. No nausea, vomiting or diarrhea. No hematuria or dysuria. No strokes or seizures. No skin lesions or musculoskeletal complaints. Allergies to CODEINE, SULFA and TRIMETHOPRIM. MEDICATIONS AT HOME: Albuterol. SOCIAL HISTORY: She is a nonsmoker. Labs are reviewed. The white count was 16.7 now is 8.0, hemoglobin is normal. Electrolytes are normal. Kidney function is mildly reduced, stage III chronic kidney disease. Triglycerides are 61, total cholesterol 164, LDL 89, and HDL 63. On examination, her blood pressure is 140/63, 121/58 and 149/66 mmHg, pulse rate is the 50s and she is afebrile, 98.4 degrees Fahrenheit. Head and neck examination is normal. Heart sounds are normal. Lungs are clear to auscultation. Extremities are warm, no edema. IMPRESSION: 1. Atypical chest and shoulder discomfort with a normal looking lipid panel and ( ) HDL. 2. Chronic kidney disease stage III. 3. No confirmed diagnosis of hypertension, but her blood pressure recordings, some of the blood pressure recordings have been borderline high. SUGGEST: Dobutamine stress echo today and if this is normal, she may go home and follow up as an outpatient. I calculated 10-year cardiovascular risk of heart attacks and strokes based upon the ( ) of Cardiology and used blood pressure 121/58 mmHg, although here I have readings of up to 140 mmHg. I also used a total cholesterol of 164, HDL 63. Her 10-year cardiovascular risk turns out to be at about 14.3%. Therefore statins are indicated for risk reduction of future cardiovascular events. I did discuss the role statins for primary prevention of cardiovascular diseases with her.
[2016-10-10] MEDS: SODIUM CHLORIDE 0.9% 1,000 ML IV SCH ×2 (10:12)
--- NOTE | 2016-10-10 11:16 | ECHOS ---
DATE OF SERVICE: 10/10/2016 AGE: 76Y SEX: F HT: 68 WT: 193 lbs. Protocol Ori: Others: Dobutamine Stress Echo Stage: Dur. of Exercise: *Heart Rate Blood Pressure *Rest: 58 Rest: 166/76 * *Max. Achieved: 124 Maximum BP: 212/59 85% PMHR: 123 100% PMHR: 145 *METS: INDICATIONS: Back pain, chest pain. MEDICATIONS: A dobutamine stress echocardiographic study was performed. Peak heart rate of 124 was achieved. Maximum blood pressure of 212/59 mmHg was noted. Resting EKG shows normal sinus rhythm with normal MN interval and QRS duration and normal ST-T waves. No ST segment depression suggestive of ischemia noted. Occasional PVCs were noted and occasional ventricular couplets were noted. The baseline echocardiographic images reveal normal left ventricular chamber size with normal left ventricular systolic function. At the peak dose of dobutamine infusion, normal increase in the wall thickness and contractility is noted. FINAL IMPRESSION: 1. This dobutamine stress echocardiographic study is negative for stress-induced ischemia. 2. EKG portion of the stress test is not suggestive of ischemia. 3. Intermittent PVCs and occasional ventricular couplets are noted.
[2016-10-10 11:51] VITALS: BP 129/55; PULSE 61; RESP 18; TEMP 98.1
[2016-10-10] MEDS ORDERED: MULTIVITAMINS, THERA 1 EACH TAB PO SCH (12:00)
--- NOTE | 2016-10-11 15:49 | P.DS ---
Providers Date of admission: 10/09/16 14:10 Expected date of discharge: 10/10/16 Attending physician: Shannan Mcclellan Consults: 10/09/16 12:28 Consult Physician Urgent Consulting Provider: Joselyn Mcclelland Consult Reason/Comments: UA Do you want consulting provider notified?: Yes [facility] Course: This is a pleasant 76-year-old lady patient of Dr. Lincoln Mckeon, she has underlying history off ALLERGY rhinitis or reactive airway disease and hyperlipidemia diet-controlled otherwise is in good health, presented to emergency room secondary to chest discomfort however she described this as a left hip pain aggravated by deep inspiration, and a left shoulder pain patient had persistence of these symptoms and was subsequently seen in emergency room. Patient has been fatigued for the past 10 days, no fever no chills no nausea no vomiting, patient does not have any previous NM no previous PE in the past which she took Aleve for the discomfort, patient denies any history of edema PE DVT no previous cardiac workup in the past 1. 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 Patient will be discharged home today in stable condition and has recommended Lipitor. Discharge diagnoses: 1. Atypical chest pain with suspicious costochondritis-like symptoms 2. Known history of reactive airway disease without any exacerbation 3. Degenerative joint disease 4. Known history of hyperlipidemia Discharge plan: Home Impression and plan of care have been directed as dictated by the signing physician. Nichelle Galdamez nurse practitioner acting as scribe for signing physician. Cc: Dr. Lincoln Mckeon Patient Condition at Discharge: Good Plan - Discharge Summary New Discharge Prescriptions: Aspirin EC [Ecotrin Low Dose] 81 mg PO DAILY #30 tablet. Atorvastatin [Lipitor] 20 mg PO HS #30 tablet Discharge Medication List Albuterol Inhaler [Ventolin Hfa Inhaler] 1 puff INHALATION RT-Q4H PRN 09/20/15 [ History] Multivitamins, Thera [Multivitamin (formulary)] 1 tab PO DAILY 09/20/15 [History ] Aspirin EC [Ecotrin Low Dose] 81 mg PO DAILY #30 tablet. 10/10/16 [Rx] Atorvastatin [Lipitor] 20 mg PO HS #30 tablet 10/10/16 [Rx] Follow up Appointment(s)/Referral(s): Guy Barahona MD [STAFF PHYSICIAN] - 1 Week (Office will call with appointment) Davis Mckeon MD [Primary Care Provider] - 1 Week Patient Instructions/Handouts: Angina (GEN) Discharge Disposition: HOME SELF-CARE
== END 2016-10-10 15:25 | disposition home or self-care (01) ==
LOC: EC 09:14 → 3OBS 14:10
PROVIDERS: ADMIT Family Medicine; ATTEND Family Medicine
DX: R07.89 Other chest pain (principal); E78.5 Hyperlipidemia, unspecified; M19.90 Unspecified osteoarthritis, unspecified site; R53.1 Weakness; R11.0 Nausea; M25.512 Pain in left shoulder; Z88.1 Allergy status to other antibiotic agents; Z88.5 Allergy status to narcotic agent; Z88.2 Allergy status to sulfonamides; J45.909 Unspecified asthma, uncomplicated; K44.9 Diaphragmatic hernia without obstruction or gangrene; J31.0 Chronic rhinitis; I45.10 Unspecified right bundle-branch block; G43.909 Migraine, unspecified, not intractable, without status migrainosus; Z82.49 Family history of ischemic heart disease and other diseases of the circulatory system; M54.2 Cervicalgia; N18.3 Chronic kidney disease, stage 3 (moderate)
CPT/HCPCS: 96366; 96367; 93005 ×2; 96376; 96365; 99285; 36415; 93017; 93350; 85379; 80061; 80053; 82550; 82553; 83735; 84484; 85025 ×2; 85610; 85730 ×2; 81003; 71020; 73030; 71275; G0378 ×2; J1250; J1644 ×2; Q9967

== ENCOUNTER → 2019-02-10 | Outpatient (CLI) | payer MEDICARE, OTHER ==
--- NOTE | 2019-02-10 16:45 | BD ---
EXAMINATION TYPE: Axial Bone Density DATE OF EXAM: 02/10/2019 COMPARISON: NONE CLINICAL HISTORY: Disorder of bone Height: 66 Weight: 189.6 FRAX RISK QUESTIONS: Alcohol (3 or more units per day): no Family History (Parent hip fracture): yes- mother Glucocorticoids (More than 3mos): no (Ex: prednisone, prednisolone, methylprednisolone, dexamethasone, and hydrocortisone). History of Fracture in Adulthood: yes Secondary Osteoporosis: 1. Type 1 Diabetes: no 2. Hyperthyroidism: no 3. Menopause before 45: yes 4. Malnutrition: no 5. Chronic liver disease: no Rheumatoid Arthritis: no Current Tobacco Use: no RISK FACTORS HISTORY OF: Family History of Osteoporosis: yes Active: yes Diet low in dairy products/other sources of calcium: no Postmenopausal woman: around age 42 Lost more than 2 inches in height since high school: just 2 inches MEDICATIONS: singular Additional History: EXAM MEASUREMENTS: Bone mineral densitometry was performed using the [employer] System. Bone mineral density as measured about the Lumbar spine is: ----- L1-L4(G/cm2): 1.032 T Score Values are as follows: ----- L2: -1.5 ----- L3: -1.2 ----- L4: -1.3 ----- L1-L4: -1.2 Bone mineral density : baseline Bone mineral density about the R hip (g/cm2): 0.811 Bone mineral density about the L hip (g/cm2): 0.854 T Score values are as follows: -----R Neck: -1.6 -----L Neck: -1.3 -----R Total: -1.2 -----L Total: -1.2 Bone mineral density : baseline IMPRESSION: Osteopenia (T Score between -2.5 and -1). There is slightly increased risk of fracture and the patient may be considered for treatment. Re-Screen 2-5 years. NOTE: T-SCORE=SD OF THE YOUNG ADULT MEAN.
--- NOTE | 2019-02-11 14:30 | MM ---
Reason for exam: screening (asymptomatic). Last mammogram was performed 2 years and 8 months ago. History: Family history of breast cancer in maternal aunt. Physical Findings: A clinical breast exam by your physician is recommended on an annual basis and results should be correlated with mammographic findings. MG 3D Screening Mammo W/Cad Bilateral CC and MLO view(s) were taken. Prior study comparison: May 28, 2016, bilateral MG 3d screening mammo w/cad. March 17, 2015, mammogram, performed at [facility]. The breast tissue is heterogeneously dense. This may lower the sensitivity of mammography. Benign appearing bilateral calcifications. No suspicious abnormality. No significant changes when compared with prior studies. ASSESSMENT: Benign, BI-RAD 2 RECOMMENDATION: Routine screening mammogram of both breasts in 1 year.
== END | disposition home or self-care (01) ==
LOC: RADMAMWWP 08:45
PROVIDERS: ATTEND Family Medicine
DX: Z12.31 Encounter for screening mammogram for malignant neoplasm of breast (principal); M85.80 Other specified disorders of bone density and structure, unspecified site
CPT/HCPCS: 77063; 77067; 77080

== ENCOUNTER → 2020-02-14 | Outpatient (CLI) | payer MEDICARE, OTHER ==
--- NOTE | 2020-02-15 14:07 | MM ---
Reason for exam: screening (asymptomatic). Last mammogram was performed 1 year ago. History: Family history of breast cancer in maternal aunt. Physical Findings: A clinical breast exam by your physician is recommended on an annual basis and results should be correlated with mammographic findings. MG 3D Screening Mammo W/Cad Bilateral CC and MLO view(s) were taken. Prior study comparison: February 10, 2019, bilateral MG 3d screening mammo w/cad. May 28, 2016, bilateral MG 3d screening mammo w/cad. The breast tissue is heterogeneously dense. This may lower the sensitivity of mammography. Finding: There are developing, suspicious, coarse heterogeneous, grouped/clustered calcifications in the lower inner quadrant, middle position of the left breast, 9cm from the nipple. New finding since May 28, 2016. ASSESSMENT: Incomplete: need additional imaging evaluation, BI-RAD 0 RECOMMENDATION: Special view mammogram of the left breast. [facility] will attempt to contact patient to return for supplemental views.
== END | disposition home or self-care (01) ==
LOC: RADMAMWWP 10:50
PROVIDERS: ATTEND Family Medicine
DX: Z12.31 Encounter for screening mammogram for malignant neoplasm of breast (principal)
CPT/HCPCS: 77063; 77067

== ENCOUNTER → 2020-02-21 | Outpatient (CLI) | payer MEDICARE, OTHER ==
--- NOTE | 2020-02-22 10:23 | MM ---
Reason for exam: additional evaluation requested from abnormal screening. Last mammogram was performed less than 1 month ago. History: Patient is postmenopausal. Family history of breast cancer in maternal aunt. Took hormonal contraceptives for 19 years beginning at age 24. Physical Findings: Nurse did not find any significant physical abnormalities on exam. MG 3D Work Up W/Cad LT CC with magnification, MLO with magnification, and LM view(s) were taken of the left breast. Prior study comparison: February 14, 2020, bilateral MG 3d screening mammo w/cad. February 10, 2019, bilateral MG 3d screening mammo w/cad. Finding: There are indeterminate calcifications in the lower quadrant, central position of the left breast. These results were verbally communicated with the patient and result sheet given to the patient on 02/21/20. ASSESSMENT: Suspicious, BI-RAD 4 RECOMMENDATION: Stereotactic core biopsy of the left breast. Called Dr. Aleman's office with mammographic findings and has scheduled an appointment for the patient for 03/02/20 at 2:[address] Parekh. Biopsy scheduled for 03/02/20 at 8:00. PRELIMINARY REPORT CALLED AND FAXED TO DR. PAREKH ON 02/22/20.
== END | disposition home or self-care (01) ==
LOC: RADMAMWWP 07:30
PROVIDERS: ATTEND Family Medicine
DX: R92.8 Other abnormal and inconclusive findings on diagnostic imaging of breast (principal)
CPT/HCPCS: 77065; G0279; 77061

== ENCOUNTER → 2020-03-02 | Outpatient (CLI) | payer MEDICARE, OTHER ==
[2020-03-02 08:47] VITALS: BP 160/85; PULSE 66; RESP 12; TEMP 98.5
== END | disposition home or self-care (01) ==
LOC: WWCWWP 08:23
PROVIDERS: ATTEND Surgery
DX: Z53.9 Procedure and treatment not carried out, unspecified reason (principal)

== ENCOUNTER → 2020-03-02 | Day surgery (SDC) | payer MEDICARE, OTHER ==
[2020-03-02 07:24] VITALS: PULSE 66; RESP 16; TEMP 98.5
--- NOTE | 2020-03-02 08:19 | P.GSHP ---
History of Present Illness H&P Date: 03/02/20 Chief Complaint: Abnormal left breast mammogram Lisa is a 79-year-old white female who underwent routine screening mammogram was noted to have an area of concern in the left breast. This led to additional views of the left breast which were performed on . This revealed indeterminate calcifications in the lower quadrant central position. 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 The patient does not feel any lumps masses or nodules in her breast. She is not complaining of any nipple discharge or breast pain. She has not had any recent history of trauma or infection in the breast. Caffeine: 4-5 cups of coffee per day Nicotine: Negative Theophylline: Occasional Hormones: Negative Family history: Maternal great aunt: Breast cancer Hormonal history: Menarche:14 , age at 29, breast fed: no Menopause: 41 BCP: 2 years, IUD 14 years hormones: during menopause for 3 weeks Surgical history: Partial hysterectomy at 74 for bladder prolapse eye surgery; bilateral ptosis, bilateral cataract surgery Medical history: Negative Social history: Nicotine: Negative Alcohol: Negative Drugs: none - Constitutional Constitutional: Denies chills, Denies fever - EENT Comment: Bilateral cataract surgery, bilateral eyelid ptosis surgery Ears: deny: decreased hearing, tinnitus Ears, nose, mouth and throat: Denies headache, Denies sore throat - Breasts Breasts: bilateral: as per HPI - Cardiovascular Cardiovascular: Denies chest pain, Denies shortness of breath - Respiratory Respiratory: Denies cough, Denies 7 - Gastrointestinal Gastrointestinal: Denies abdominal pain, Denies diarrhea, Denies nausea, Denies vomiting - Genitourinary (Female) Genitourinary: Denies dysuria, Denies hematuria - Menstruation Menstruation: Reports post hysterectomy - Musculoskeletal Comment: 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 CYSTOCELE/UTERINE PROLAPSE. VARICOSE VEINS History of Any Multi-Drug Resistant Organisms: None Reported Past Surgical History: Bladder Surgery, Hysterectomy Additional Past Surgical History / Comment(s): CYSTOCELE REPAir. MARCI EYE LID SX. 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 NO HOME CARE SERVICES, NO MEDICAL EQUIPMENT. Smoking Status: Never smoker Past Alcohol Use History: Rare Past Drug Use History: None Reported - Past Family History Mother Family Medical History: No Reported History Father Family Medical History: Congestive Heart Failure (CHF) Additional Family Medical History / Comment(s): JARAD Medications and Allergies Home Medications Medication Instructions Recorded Confirmed Type Multivitamins, Thera [Multivitamin 1 tab PO DAILY 09/20/15 03/02/20 History (formulary)] Glucosamine Sulfate 500 mg PO DAILY 02/25/20 03/02/20 History Montelukast [Singulair] 10 mg PO DAILY 02/25/20 03/02/20 History Allergies Allergy/AdvReac Type Severity Reaction Status Date / Time codeine Allergy headache Verified 03/02/20 07:16 sulfamethoxazole Allergy "does not Verified 03/02/20 07:16 [From Bactrim] work" trimethoprim [From Bactrim] Allergy "does not Verified 03/02/20 07:16 work" Surgical - Exam Vital Signs Temp Pulse Resp BP 98.5 F 66 16 160/85 03/02/20 07:17 03/02/20 07:17 03/02/20 07:17 03/02/20 07:17 BMI 30.3 - General well developed, no distress - Eyes normal ocular movement - ENT no hearing loss - Neck no masses, trachea midline - Respiratory normal respiratory effort, clear to auscultation - Cardiovascular Rhythm: regular Heart Sounds: normal: S1, S2 - Abdomen Abdomen: soft, non tender, no guarding, no rigid, no rebound - Integumentary normal turgor - Neurologic no disoriented, no combative - Musculoskeletal normal gait, normal posture - Psychiatric oriented to time, oriented to person, oriented to place, speech is normal, memory intact breast exam: BRA 40DD inspection: bilateral grade 3 ptosis Palpation: Right breast: Multi-positional exam fibrocystic changes no dominant masses or nodules of concern Right axilla: No adenopathy of concern Left breast: Multi-positional exam fibrocystic changes, no dominant masses or nodules of concern Left axilla: No adenopathy of concern Results Mammogram review Assessment and Plan Assessment: Impression: 1. Radiographic abnormality/microcalcifications left breast 2. Fibrocystic breast changes Plan: 1. Left breast stereotactic core biopsy Risks and benefits of procedure discussed with the patient. She understands and wishes to proceed. Risks include but are not limited to bleeding, infection, reaction to the anesthetic. Additionally if the lesion were discordant results open biopsy may be considered. CC: Dr. Aleman encounter 25 minutes, > 50% of time in planning and counselling
[2020-03-02 09:50] VITALS: BP 155/73
--- NOTE | 2020-03-02 10:57 | P.PCN ---
Date of Procedure: 03/02/20 Preoperative Diagnosis: Left breast mammographic abnormality/microcalcifications Postoperative Diagnosis: Same Procedure(s) Performed: Stereotactic core biopsy left breast Surgeon: Adri Parekh Pathology: other (Breast tissue) Condition: stable Disposition: same day Indications for Procedure: Microcalcifications of concern left breast Operative Findings: Microcalcifications of concern noted in biopsy specimen Description of Procedure: The patient is a 79-year-old white female who on a routine mammogram was noted to have some microcalcifications of concern in her left breast. This was in the lower mid breast. Additional views revealed the calcifications to be suspicious and stereotactic core biopsy was recommended. Risks and benefits of procedure discussed with the patient and she wished to proceed. The patient was taken to sterotactic core biopsy room. A tool specialist film was obtained. The area of concern was identified and targeted. Initially cc from below approach was utilized, however there was concern that vessels were in the area and therefore a medial to lateral approach was utilized. Following identification of the area on a scale from the area was targeted. The area of concern in the left breast was prepped using Betadine. Approximately 25 mL of 1% lidocaine was used to anesthetize the area of concern. A 9-gauge vacuum- assisted core rotating biopsy needle was driven to the correct coordinates. 13 cores samples were obtained. The area was lavaged. Radiograph of the specimen revealed the area of concern had been sampled. A secure marked top at clip was placed. The patient tolerated the procedure in stable condition. The patient will follow next week for results of the biopsy.
--- NOTE | 2020-03-02 11:16 | P.PN ---
Progress Note - Text Progress Note Date: 03/02/20 Patient underwent ultrasound-guided core biopsy of the right breast. When the needle introduced purulent fluid was obtained. This was sent for culture. The patient will be started on an antibiotic. He had complete resolution of the mass. He will follow up next week He is started on Keflex.
--- NOTE | 2020-03-02 20:26 | MM ---
EXAMINATION TYPE: MG stereo VAD BX LT DATE OF EXAM: 03/02/2020 COMPARISON: NONE CLINICAL HISTORY: Abnormal mammogram TECHNIQUE: Stereotactic guided core biopsy of left breast. FINDINGS: Procedure was performed by surgery. Targeting was provided by radiology. Specimen: Single mammographic specimen is presented which demonstrates calcifications. Postprocedure mammogram: Calcifications appear to be resected. Clip is present at the biopsy site. IMPRESSION: 1. Successful stereotactic core biopsy left breast calcifications. Recommendations: 1. Recommendations are pending pathology results. Pathology Results: Benign LEFT BREAST, NEEDLE CORE BIOPSIES: Benign predominantly fibrofatty breast parenchyma with fibrocystic spectrum lesions including focal fibroadenomatoid hyperplasia with coarse intraductal mineralizations. Recommendation Follow up mammogram of the left breast in 6 months. LONNIE
== END ==
LOC: RADMAMWWP 06:52
PROVIDERS: ATTEND Surgery
DX: N60.12 Diffuse cystic mastopathy of left breast (principal); Z88.5 Allergy status to narcotic agent; Z88.2 Allergy status to sulfonamides
CPT/HCPCS: 88305; 19081; A4648; J2001

== ENCOUNTER → 2020-03-10 | Outpatient (CLI) | payer MEDICARE, OTHER ==
[2020-03-10 13:34] VITALS: BP 133/72; PULSE 67; RESP 18; TEMP 98.4
--- NOTE | 2020-03-10 13:44 | P.PN ---
Subjective Progress Note Date: 03/10/20 Principal diagnosis: Left breast stereotactic core biopsy results Lisa is a 79-year-old white female status post left breast stereotactic core biopsy and [id number]. The pathology is benign and concordant. She tolerated the procedure without difficulty. She did develop an area of ecchymosis at the biopsy site. Objective - Vital Signs Vital signs: Vital Signs Temp 98.4 F 03/10/20 13:29 Pulse 67 03/10/20 13:29 Resp 18 03/10/20 13:29 BP 133/72 03/10/20 13:29 Pulse Ox 99 03/10/20 13:29 Intake & Output 03/09/20 03/10/20 03/10/20 18:59 06:59 18:59 Weight 85.275 kg - Exam BMI 30.3 - Constitutional General appearance: Present: obese - EENT Eyes: Present: EOMI ENT: Present: hearing grossly normal - Neck Neck: Present: normal ROM - Respiratory Respiratory: bilateral: CTA - Cardiovascular Rhythm: regular Heart sounds: normal: S1, S2 - Integumentary Integumentary Comment(s): Mild ecchymosis left breast at biopsy site no evidence of infection or hematoma - Musculoskeletal Musculoskeletal: Present: gait normal - Psychiatric Psychiatric: Present: A&O x's 3, appropriate affect, intact judgment & insight Assessment and Plan Assessment: Impression: 1. Fibrocystic changes left breast and stereo biopsy Plan: 1. Repeat left breast mammogram in 6 months with physician exam at that time CC: DR. Aleman encounter 10 minutes, > 50% of time in planning and counselling
== END | disposition home or self-care (01) ==
LOC: WWCWWP 13:01
PROVIDERS: ATTEND Surgery
DX: Z53.9 Procedure and treatment not carried out, unspecified reason (principal)

== ENCOUNTER → 2020-06-21 | Outpatient (CLI) | payer MEDICARE, OTHER | END | disposition home or self-care (01) | LOC: LABWHC1 09:05 | PROVIDERS: ATTEND Nurse Practitioner | DX: M54.6 Pain in thoracic spine (principal); R11.0 Nausea | CPT/HCPCS: 36415; 93005 ==

== ENCOUNTER 2021-11-12 11:09 | Emergency (ER) | payer MEDICARE, OTHER ==
[2021-11-12 11:15] VITALS: BP 167/75; PULSE 76; RESP 16; TEMP 98.1
--- NOTE | 2021-11-12 11:49 | ED ---
Fall HPI - General Chief Complaint: Fall Stated Complaint: fall Time Seen by Provider: 11/12/21 11:21 Source: patient, family, RN notes reviewed Mode of arrival: ambulatory - History of Present Illness Initial Comments: This is an 81-year-old female who presents to the emergency department for a fall. She was walking around in her yard earlier today, when she caught her shoe on the weed silver and tripped. Denies any lightheadedness or dizziness prior to the fall. States that she slid on the grass, hit her nose and injured the left knee. Denies any loss of consciousness. She is not on any blood thinners. Denies any fevers, chills, sore throat, cough, dyspnea, chest pain, palpitations, abdominal pain, nausea, vomiting, diarrhea, or back pain. MD Complaint: fall Fall From: standing Fall Witnessed: yes, by family Place Fall Occurred: home Loss of Consciousness: none Prolonged Down Time?: no Symptoms Prior to Fall: none Location: face Location - Extremities: Left: Knee Context: tripped/slipped - Related Data Home Medications Medication Instructions Recorded Confirmed Multivitamins, Thera [Multivitamin 1 tab PO DAILY 09/20/15 03/10/20 (formulary)] Glucosamine Sulfate 500 mg PO DAILY 02/25/20 03/10/20 Montelukast [Singulair] 10 mg PO DAILY 02/25/20 03/10/20 Cholecalciferol [Vitamin D3 (25 4,000 unit PO DAILY 03/10/20 03/10/20 Mcg = 1000 Iu)] Previous Rx's Medication Instructions Recorded Cephalexin [Keflex] 500 mg PO Q8HR 5 Days #15 cap 11/12/21 HYDROcodone/APAP 5-325MG [Sassafras 1 tab PO Q6HR PRN 3 Days #12 tab 11/12/21 5-325] Allergies Allergy/AdvReac Type Severity Reaction Status Date / Time codeine Allergy headache Verified 11/12/21 11:10 sulfamethoxazole Allergy "does not Verified 11/12/21 11:10 [From Bactrim] work" trimethoprim [From Bactrim] Allergy "does not Verified 11/12/21 11:10 work" Review of Systems ROS Statement: Those systems with pertinent positive or pertinent negative responses have been documented in the HPI. ROS Other: All systems not noted in ROS Statement are negative. Past Medical History Past Medical History: Asthma Additional Past Medical History / Comment(s): sesonal ALLERGIES. CYSTOCELE/UTERINE PROLAPSE. VARICOSE VEINS History of Any Multi-Drug Resistant Organisms: None Reported Past Surgical History: Bladder Surgery, Hysterectomy Additional Past Surgical History / Comment(s): CYSTOCELE REPAir. MARCI EYE LID SX. MARCI CATARACTS, Past Anesthesia/Blood Transfusion Reactions: Motion Sickness Past Psychological History: No Psychological Hx Reported Smoking Status: Never smoker Past Alcohol Use History: Rare Past Drug Use History: None Reported - Past Family History Mother Family Medical History: No Reported History Father Family Medical History: Congestive Heart Failure (CHF) Additional Family Medical History / Comment(s): JARAD General Exam Limitations: no limitations General appearance: alert, in no apparent distress Head exam: Present: other (Superficial laceration between the eyebrows. Minor active bleeding. No penetration of the dermis.) ENT exam: Present: other (Bilateral nasal swelling and tenderness. No septal hematoma.) Respiratory exam: Present: normal lung sounds bilaterally. Absent: respiratory distress, wheezes, rales, rhonchi, stridor Cardiovascular Exam: Present: regular rate, normal rhythm, normal heart sounds. Absent: systolic murmur, diastolic murmur, rubs, gallop, clicks Extremities exam: Present: other (Tenderness and swelling over the left patella. Limited range of motion secondary to pain.) Neurological exam: Present: alert, oriented X3, CN II-XII intact Psychiatric exam: Present: normal affect, normal mood Skin exam: Present: warm, dry, normal color. Absent: rash Course Vital Signs 11/12/21 11:11 Temperature 98.1 F Pulse Rate 76 Respiratory 16 Rate Blood Pressure 167/75 O2 Sat by Pulse 98 Oximetry Medical Decision Making - Medical Decision Making This is an 81-year-old female who presents to the emergency department after a fall. X-rays of the left knee and nasal bones were obtained. X-ray of the left knee reveal no acute changes. X-ray of the nasal bones revealed possible nondisplaced distal nasal bone fracture. Patient does have overlying wound, prescription for Keflex sent to the pharmacy. Tdap updated as well. Follow-up for ENT also listed on her discharge form, instructed her to follow-up within the next week. The wound is superficial and no repair is required. Nasal precautions reviewed and she is instructed to avoid blowing her nose for at least 2 weeks. Also instructed her to ice her nose for the first 2 days followed by heat thereafter. Return precautions reviewed in depth, the patient is instructed to return to the emergency department with any new, worsening, or concerning symptoms. Patient verbalized understanding. This case was discussed in detail with the attending ED physician. Presentation, findings, and treatment plan discussed in detail as well. - Radiology Data Radiology results: report reviewed, image reviewed Disposition Clinical Impression: Nasal bone fracture Disposition: HOME SELF-CARE Instructions (If sedation given, give patient instructions): Nasal Fracture (ED) Additional Instructions: Return to the emergency department with any new, worsening, or concerning symptoms. Ice the nose and the knee for the first 2 days followed by heat there afterwards. Take the antibiotic as prescribed for 5 days. Avoid blowing the nose and contact the ENT office as listed below for a follow-up appointment. Follow up with your primary care provider in 1-2 days. Prescriptions: Cephalexin [Keflex] 500 mg PO Q8HR 5 Days #15 cap HYDROcodone/APAP 5-325MG [Sassafras 5-325] 1 tab PO Q6HR PRN 3 Days #12 tab PRN Reason: Pain Is patient prescribed a controlled substance at d/c from ED?: Yes When asked, does pt state using other controlled substances?: No If prescribed controlled substance>3 days was MAPS reviewed?: Prescribed <3 Days Referrals: Fabiana Aleman MD [Primary Care Provider] - 1-2 days Arsenio Howard DO [Doctor of Osteopathic Medicine] - 1-2 days
--- NOTE | 2021-11-12 12:01 | XR ---
EXAMINATION TYPE: XR knee complete LT DATE OF EXAM: 11/12/2021 COMPARISON: None HISTORY: Pain following fall TECHNIQUE: 3 view left knee FINDINGS: Minimal narrowing of the medial lateral compartment joint spaces are present. Medial and la teral tibial plateau spurring is present to a mild degree. There is advanced degenerative changes at the patellofemoral joint space with large femoral spurring anteriorly. No large joint effusion is evident. Follow-up studies can be performed 7-10 days from acute trauma for continued pain. IMPRESSION: 1. 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 2. Minimal medial and lateral compartment joint space degenerative change. 3. No acute osseous abnormality.
--- NOTE | 2021-11-12 12:03 | XR ---
EXAMINATION TYPE: XR nasal bone DATE OF EXAM: 11/12/2021 COMPARISON: None HISTORY: Fall, injury to nose TECHNIQUE: Nasal bones are examined in 3 projections FINDINGS: Extremely subtle lucency may be along the superior aspect of the distal nasal bone nondisplaced fract ure could be considered. Maxillary spine is intact. Paranasal sinuses within the field of view are clear. Medial bobo of the orbit appear intact. IMPRESSION: 1. Clinical correlation recommended for nondisplaced distal nasal bone fracture
[2021-11-12] MEDS ORDERED: DIPH,PERTUS(ACELL)TETVAC-LF 0.5 ML VIAL IM ONE (12:16)
== END 2021-11-12 12:40 | disposition home or self-care (01) ==
LOC: EC 11:09
DX: S02.2XXA Fracture of nasal bones, initial encounter for closed fracture (principal); M25.562 Pain in left knee; J45.909 Unspecified asthma, uncomplicated; Z23 Encounter for immunization; W01.0XXA Fall on same level from slipping, tripping and stumbling without subsequent striking against object, initial encounter; Y92.009 Unspecified place in unspecified non-institutional (private) residence as the place of occurrence of the external cause
CPT/HCPCS: 70160; 90471; 90715; 99284

== ENCOUNTER → 2021-12-19 | Outpatient (CLI) | payer MEDICARE ==
--- NOTE | 2021-12-19 08:29 | MM ---
Reason for Exam: Hx of benign breast biopsy. Last mammogram was performed 1 year(s) and 11 month(s) ago. Patient History: Menarche at age 14. First Full-Term at age 29. Hysterectomy at age 75. Postmenopausal. Hormonal Contraceptives for 19 years from age 24 until age 43. 03/02/2020, Benign Core Biopsy on the left side. Maternal aunt had breast cancer. Risk Values: Renetta 5 year model risk: 2.2%. NCI Lifetime model risk: 3.3%. Tissue Density: The breast tissue is heterogeneously dense. This may lower the sensitivity of mammography. Findings: Analyzed By CAD. Scattered benign round calcifications bilaterally. Microclip left breast from prior biopsy. No significant change from prior exams. Overall Assessment: Benign, BI-RAD 2 Management: Screening Mammogram of both breasts in 1 year. 1. Patient should continue monthly self breast exams. 2. A clinical breast exam by your physician is recommended on an annual basis. 3. This exam should not preclude additional follow-up of suspicious palpable abnormalities. Electronically signed and approved by: Ross Saul M.D. Radiologist
== END | disposition home or self-care (01) ==
LOC: RADMAMWWP 07:59
PROVIDERS: ATTEND Family Medicine
DX: R92.8 Other abnormal and inconclusive findings on diagnostic imaging of breast (principal)
CPT/HCPCS: 77066; G0279; 77062

== ENCOUNTER 2022-04-13 06:36 | Observation (INO) | payer MEDICARE ==
--- NOTE | 2022-04-13 07:10 | ED ---
General Adult HPI - General Chief complaint: Neuro Symptoms/Deficit Stated complaint: Double vision Time Seen by Provider: 04/13/22 07:01 Source: patient, EMS Mode of arrival: EMS Limitations: no limitations - History of Present Illness Initial comments: Dictation was produced using [employer] dictation software. please excuse any grammatical, word or spelling errors. Chief Complaint: 81-year-old male presents emergency Department with episode of double vision History of Present Illness: Patient is a 81-year-old female with no significant past medical history. She states that she woke up this morning around 5:00 AM. Shortly after she started to experience double vision. States that she was seen double of everything. She tried to cover each eye to see which I was the abnormal eye however did notany problems. Symptoms lasted for around 20-25 minutes when all of a sudden resolved spontaneously. Patient presents to the ER via EMS. She has no history of stroke. Does not take any an echo evaluation medications. Denies any symptoms at the bedside. She has history of left eye ptosis The ROS documented in this emergency department record has been reviewed and confirmed by me. Those systems with pertinent positive or negative responses have been documented in the HPI. All other systems are other negative and/or no ncontributory. PHYSICAL EXAM: General Impression: Alert and oriented x3, not in acute distress HEENT: Normocephalic atraumatic, extra-ocular movements intact, pupils equal and reactive to light bilaterally, mucous membranes moist. Cardiovascular: Heart regular rate and rhythm Chest: Able to complete full sentences, no retractions, no tachypnea Abdomen: abdomen soft, non-tender, non-distended, no organomegaly Musculoskeletal: Pulses present and equal in all extremities, no peripheral edema Motor: no focal deficits noted Neurological: CN II-XII grossly intact, no focal motor or sensory deficits noted, ptosis of the left eye Skin: Intact with no visualized rashes Psych: Normal affect and mood ED course: 81-year-old female presents to the emergency department for transient episode of diplopia. Symptoms last for 25 minutes. Patient denies any symptoms at this time. Physical examination is unremarkable. All signs upon arrival shows blood pressure 189/83. Clinical presentation suspicious for acute transient neurologic processes. Laboratory evaluation is unremarkable. Computed tomography scan of brain is negative. Should decision-making the patient. She is agreeable with obser vation admission with consultation to neurology. Chart review was performed My EKG interpretation: Ventricular rate 62, sinus rhythm,. 166, QS 114, QTc 45. No AK prolongation, no QTC prolongation, no ST or T-wave changes noted. Overall, this EKG is unremarkable - Related Data Home Medications Medication Instructions Recorded Confirmed Multivitamins, Thera [Multivitamin 1 tab PO DAILY 09/20/15 03/10/20 (formulary)] Glucosamine Sulfate 500 mg PO DAILY 02/25/20 03/10/20 Montelukast [Singulair] 10 mg PO DAILY 02/25/20 03/10/20 Cholecalciferol [Vitamin D3 (25 4,000 unit PO DAILY 03/10/20 03/10/20 Mcg = 1000 Iu)] Previous Rx's Medication Instructions Recorded Cephalexin [Keflex] 500 mg PO Q8HR 5 Days #15 cap 11/12/21 HYDROcodone/APAP 5-325MG [[place] 1 tab PO Q6HR PRN 3 Days #12 tab 11/12/21 5-325] Allergies Allergy/AdvReac Type Severity Reaction Status Date / Time codeine Allergy headache Verified 04/13/22 06:42 sulfamethoxazole Allergy "does not Verified 04/13/22 06:42 [From Bactrim] work" trimethoprim [From Bactrim] Allergy "does not Verified 04/13/22 06:42 work" Review of Systems ROS Statement: Those systems with pertinent positive or pertinent negative responses have been documented in the HPI. ROS Other: All systems not noted in ROS Statement are negative. Past Medical History Past Medical History: Asthma Additional Past Medical History / Comment(s): sesonal ALLERGIES. CYSTOCELE /UTERINE PROLAPSE. VARICOSE VEINS History of Any Multi-Drug Resistant Organisms: None Reported Past Surgical History: Bladder Surgery, Hysterectomy Additional Past Surgical History / Comment(s): CYSTOCELE REPAir. MARCI EYE LID SX. MARCI CATARACTS, Past Anesthesia/Blood Transfusion Reactions: Motion Sickness Past Psychological History: No Psychological Hx Reported Smoking Status: Never smoker Past Alcohol Use History: Rare Past Drug Use History: None Reported - Past Family History Mother Family Medical History: No Reported History Father Family Medical History: Congestive Heart Failure (CHF) Additional Family Medical History / Comment(s): JARAD General Exam Limitations: no limitations Course Vital Signs 04/13/22 04/13/22 04/13/22 06:37 07:42 08:42 Temperature 97.9 F Pulse Rate 65 64 65 Respiratory 18 18 18 Rate Blood Pressure 189/83 170/84 153/83 O2 Sat by Pulse 99 99 99 Oximetry Medical Decision Making - Lab Data Result diagrams: 04/13/22 08:25 04/13/22 08:25 Lab Results 04/13/22 04/13/22 04/13/22 Range/Units 08:25 08:25 08:25 WBC 6.9 (3.8-10.6) k/uL RBC 3.98 (3.80-5.40) m/uL Hgb 12.6 (11.4-16.0) gm/dL Hct 37.3 (34.0-46.0) % MCV 93.8 (80.0-100.0) fL MCH 31.6 (25.0-35.0) pg MCHC 33.7 (31.0-37.0) g/dL RDW 13.1 (11.5-15.5) % Plt Count 309 (150-450) k/uL MPV 9.0 Neutrophils % 68 % Lymphocytes % 16 % Monocytes % 10 % Eosinophils % 5 % Basophils % 0 % Neutrophils # 4.6 (1.3-7.7) k/uL Lymphocytes # 1.1 (1.0-4.8) k/uL Monocytes # 0.7 (0-1.0) k/uL Eosinophils # 0.3 (0-0.7) k/uL Basophils # 0.0 (0-0.2) k/uL PT 10.3 (9.0-12.0) sec INR 0.9 (<1.2) APTT 24.3 (22.0-30.0) sec Sodium 140 (137-145) mmol/L Potassium 4.7 (3.5-5.1) mmol/L Chloride 111 H (98-107) mmol/L Carbon Dioxide 23 (22-30) mmol/L Anion Gap 6 mmol/L BUN 23 H (7-17) mg/dL Creatinine 1.03 (0.52-1.04) mg/dL Est GFR (CKD-EPI)AfAm 59 (>60 ml/min/1.73 sqM) Est GFR (CKD-EPI)NonAf 52 (>60 ml/min/1.73 sqM) Glucose 93 (74-99) mg/dL Calcium 8.5 (8.4-10.2) mg/dL Magnesium 2.1 (1.6-2.3) mg/dL Total Bilirubin 0.6 (0.2-1.3) mg/dL AST 17 (14-36) U/L ALT 20 (4-34) U/L Alkaline Phosphatase 70 (38-126) U/L Total Protein 6.2 L (6.3-8.2) g/dL Albumin 3.9 (3.5-5.0) g/dL Disposition Clinical Impression: TIA (transient ischemic attack) Disposition: ADMITTED IP TO THIS HOSP Condition: Fair Referrals: Fabiana Aleman MD [Primary Care Provider] - 1-2 days Decision Time: 10:36
[2022-04-13 08:34] LABS: Basophils % (A) 0 %; Eosinophils # (A) 0.3 k/uL (0-0.7); Eosinophils % (A) 5 %; HCT 37.3 % (34.0-46.0); HGB 12.6 gm/dL (11.4-16.0); Lymphocytes # (A) 1.1 k/uL (1.0-4.8); Lymphocytes % (A) 16 %; MCH 31.6 pg (25.0-35.0); MCHC 33.7 g/dL (31.0-37.0); MCV 93.8 fL (80.0-100.0); Monocytes # (A) 0.7 k/uL (0-1.0); Monocytes % (A) 10 %; Neutrophils # (A) 4.6 k/uL (1.3-7.7); Neutrophils % (A) 68 %; Platelet Count 309 k/uL (150-450); RBC 3.98 m/uL (3.80-5.40); RDW 13.1 % (11.5-15.5); WBC 6.9 k/uL (3.8-10.6)
[2022-04-13 08:43] LABS: INR 0.9 (<1.2); Partial Thromboplastin Time 24.3 sec (22.0-30.0); Prothrombin Time 10.3 sec (9.0-12.0)
[2022-04-13 08:49] LABS: Albumin 3.9 g/dL (3.5-5.0); Calcium 8.5 mg/dL (8.4-10.2); Total Bilirubin 0.6 mg/dL (0.2-1.3); Total Protein 6.2 g/dL (6.3-8.2)
[2022-04-13 08:51] LABS: Magnesium 2.1 mg/dL (1.6-2.3); Potassium 4.7 mmol/L (3.5-5.1)
--- NOTE | 2022-04-13 09:14 | CT ---
EXAMINATION TYPE: CT brain wo con DATE OF EXAM: 04/13/2022 COMPARISON: None HISTORY: double vision CT DLP: 1058.8 mGycm Automated exposure control for dose reduction was used. FINDINGS: The ventricles, basal cisterns and sulci over the convexities are within normal limits. There is no mass, mass effect or shift of midline structures. No abnormal density is seen throughout the brain parenchyma and there is no acute intra or extra-axia l hemorrhage. The posterior fossa including the brainstem, fourth ventricle and cerebellar pontine angles appear gr ossly normal. Intraorbital contents are normal and symmetric. Visualized paranasal sinuses, mastoid air cells and middle ear cavities are well aerated. The calvarium is intact. IMPRESSION: No acute bleed or mass effect and no significant abnormality seen.
[2022-04-13] MEDS ORDERED: NALOXONE 0.4 MG/ML 1 ML VIAL IV PRN (10:34)
[2022-04-13] MEDS ORDERED: ASPIRIN 81 MG PO STA (10:34)
[2022-04-13] MEDS: SODIUM CHLORIDE 0.9% 1,000 ML IV SCH (12:13)
[2022-04-13] MEDS ORDERED: NON FORMULARY DRUG (Glucosamine Sulfate 500 MG Cap) PO SCH (15:45)
--- NOTE | 2022-04-13 16:23 | P.HPIM ---
History of Present Illness H&P Date: 04/13/22 Lisa Palmer, is an 81-year-old female who presented to [facility] emergency room, after having an episode of double vision that lasted about 25 minutes, patient states that she was trying to close 1 eye to see which I was causing the double vision however she could not reach any conclusion her symptoms lasted about 25 minutes and resolved spontaneously, she denies any history of hypertension however her blood pressure was elevated today, she has known history of mild hyperlipidemia, she tried to take statins in the past but she could not tolerate and she stopped taking them shortly after starting. She stated that in the remote past she had migraine headache but has not had any migraine for years, she denies any history of coronary artery disease congestive heart failure TIA or stroke in the past, she stated that she had eye lid surgery for ptosis in the remote past she also had bilateral cataract surgery about 10 years ago She was evaluated in the emergency room vital examination on presentation revealed a temperature of 97.9 pulse 65 respiration 18 blood pressure 189/83 pulse ox 99% on room air Laboratory data reveals a white blood count of 6.9 hemoglobin 12.6 platelet count 309 CMP within normal limits Testing in the emergency room revealed computed tomography scan of the brain done without contrast in the emergency room revealed no acute bleed or mass affect and no significant abnormality seen Patient was admitted to medical floor for further evaluation and treatment Past Medical History Past Medical History: Asthma Additional Past Medical History / Comment(s): sesonal ALLERGIES. CYSTOCELE/UTERINE PROLAPSE. VARICOSE VEINS History of Any Multi-Drug Resistant Organisms: None Reported Past Surgical History: Bladder Surgery, Hysterectomy Additional Past Surgical History / Comment(s): CYSTOCELE REPAir. MARCI EYE LID SX. MARCI CATARACTS, Past Anesthesia/Blood Transfusion Reactions: Motion Sickness Past Psychological History: No Psychological Hx Reported Smoking Status: Never smoker Past Alcohol Use History: Rare Past Drug Use History: None Reported - Past Family History Mother Family Medical History: No Reported History Father Family Medical History: Congestive Heart Failure (CHF) Additional Family Medical History / Comment(s): [place] Medications and Allergies Home Medications Medication Instructions Recorded Confirmed Type Multivitamins, Thera [Multivitamin 1 tab PO DAILY 09/20/15 04/13/22 History (formulary)] Glucosamine Sulfate 500 mg PO DAILY 02/25/20 04/13/22 History Montelukast [Singulair] 10 mg PO DAILY 02/25/20 04/13/22 History Cholecalciferol [Vitamin D3 (25 50 mcg PO DAILY 04/13/22 04/13/22 History Mcg = 1000 Iu)] Allergies Allergy/AdvReac Type Severity Reaction Status Date / Time codeine Allergy headache Verified 04/13/22 11:55 sulfamethoxazole Allergy "does not Verified 04/13/22 11:55 [From Bactrim] work" trimethoprim [From Bactrim] Allergy "does not Verified 04/13/22 11:55 work" Physical Exam Vitals: Vital Signs Temp Pulse Resp BP Pulse Ox 04/13/22 11:00 66 18 166/81 97 04/13/22 10:00 65 18 154/73 97 04/13/22 09:00 64 18 164/74 97 04/13/22 08:42 65 18 153/83 99 04/13/22 07:42 64 18 170/84 99 04/13/22 06:37 97.9 F 65 18 189/83 99 Intake and Output 04/12/22 04/13/22 04/13/22 22:59 06:59 14:59 Other: Weight 73.482 kg In general patient is alert and oriented x 3 in no distress HEENT head normocephalic and atraumatic Neck is supple no JVD no goiter no lymphadenopathy no carotid bruit Chest examination is clear to auscultation no crackles no wheezing Cardiac exam reveals regular heart sounds S1 and S2 no gallops no murmurs Abdomen is soft nontender no organomegaly with normal bowel sounds Extremity exam reveals no edema no cyanosis or clubbing Neurological examination reveals no gross focal deficits Results CBC & Chem 7: 04/13/22 08:25 04/13/22 08:25 Labs: Abnormal Lab Results - Last 24 Hours (Table) 04/13/22 Range/Units 08:25 Chloride 111 H (98-107) mmol/L BUN 23 H (7-17) mg/dL Total Protein 6.2 L (6.3-8.2) g/dL Assessment and Plan Plan: Episode of double vision lasting about 25 minutes, possibly related to transient ischemic attack Elevated blood pressure on presentation, will monitor closely and avoid significant drop in blood pressure Underlying history of asthma Underlying history of varicose veins Underlying history of cystocele with uterine prolapse status post hysterectomy and cystocele repair Underlying history of hyperlipidemia with check lipid profile fasting Remote history of bilateral cataract surgery At this time patient is admitted to telemetry floor Echocardiogram and carotid Doppler ordered Home medications reviewed and reordered Neurology consultation requested Will follow closely
[2022-04-13] MEDS: MONTELUKAST 10 MG TAB PO SCH (16:24)
[2022-04-13] MEDS: MULTIVITAMINS, THERA 1 EACH TAB PO SCH (16:24)
[2022-04-13] MEDS: CHOLECALCIFEROL 25 MCG (1000 IU) TABLET PO SCH (16:24)
--- NOTE | 2022-04-13 18:17 | US ---
EXAMINATION TYPE: US carotid duplex BILAT DATE OF EXAM: 04/13/2022 COMPARISON: NONE CLINICAL HISTORY: TIA. dizziness and blurred vision this morning. High BP started today per patient. Inpatient. TECHNIQUE: Carotid duplex ultrasound examination. Indirect Doppler criteria was utilized. FINDINGS: EXAM MEASUREMENTS: RIGHT: Peak Systolic Velocity (PSV) cm/sec ----- Right CCA: 48.8 ----- Right ICA: 59.2 ----- Right ECA: 62.7 ICA/CCA ratio: 1.2 RIGHT: End Diastole cm/sec ----- Right CCA: 11.3 ----- Right ICA: 19.1 ----- Right ECA: 62.7 LEFT: Peak Systolic Velocity (PSV) cm/sec ----- Left CCA: 49.6 ----- Left ICA: 66.9 ----- Left ECA: 49.8 ICA/CCA ratio: 1.3 LEFT: End Diastole cm/sec ----- Left CCA: 11.3 ----- Left ICA: 21.9 ----- Left ECA: 6.3 VERTEBRALS (direction of flow): Right Vertebral: Antegrade Left Vertebral: Antegrade Rhythm: Normal [employer] NOTES: No elevated velocities, stenosis, plaque or wall thickening. IMPRESSION: There is antegrade flow in the vertebral arteries. The images and measurements suggest 0% stenosis in both internal carotid arteries. Criteria for Assigning % of Stenosis / Diameter reduction (Estimation based on the indirect measurements of the internal carotid artery velocities (ICA PSV). 1. Normal (no stenosis)=ICA PSV < 125 cm/s: ratio < 2.0: ICA EDV<40 cm/s. 2. Less than 50% stenosis=ICA PSV < 125 cm/s: ratio < 2.0: ICA EDV<40 cm/s. 3. 50 to 69% stenosis=ICA PSV of 125 to 230 cm/s: ration 2.0 ? 4.0: ICA EDV 40-100 cm/s. 4. Greater than 70% stenosis to near occlusion= ICA PSV > 230 cm/s: ratio > 4.0: ICA EDV > 100 cm/s. 5. Near occlusion= ICA PSV velocities may be low or undetectable: variable ratio and ICA EDV. 6. Total occlusion=unable to detect flow.
[2022-04-13] MEDS: amLODIPine 5 MG TAB PO SCH (18:52)
[2022-04-13 22:43] LABS: Chol/HDL Ratio 3.93 Ratio; LDL Cholesterol,Calculated 125.1 mg/dL (0.0-131.0); VLDL Calculation 18.78 mg/dL (5.00-40.00)
[2022-04-14] MEDS: ASPIRIN 81 MG PO SCH (08:29)
[2022-04-14] MEDS: CHOLECALCIFEROL 25 MCG (1000 IU) TABLET PO SCH (08:29)
[2022-04-14] MEDS: MULTIVITAMINS, THERA 1 EACH TAB PO SCH (08:30)
[2022-04-14] MEDS: amLODIPine 5 MG TAB PO SCH (08:30)
[2022-04-14] MEDS: MONTELUKAST 10 MG TAB PO SCH (08:30)
--- NOTE | 2022-04-14 09:01 | P.CNNES ---
History of Present Illness Consult date: 04/13/22 Requesting physician: Ike Smyth Reason for Consult: TIA History of Present Illness: Patient is a 81-year-old female with previous history of migraines, who woke up this morning at 5 AM and got dressed. About 5 minutes after getting dressed, patient started noticing double vision, as if looking like through a magnifying glass, like distorted vision. Also felt slightly dizzy. This episode lasted for about 20-25 minutes and then it passed. She denies any headache or any pain before or after this episode. There was no associated slurred speech, facial droop or any other focal neurological symptoms. She did check her blood pressure, and was running high about 188 systolic, which is very unusual for her, as she is usually has low blood pressures. Patient states that about 3-4 weeks ago, she had transient visual disturbance, consisting of jagged lines in her vision that lasted for about 20 seconds and then resolved. She felt that she may have been in the bright sun light, therefore ignored it. There was no headache before or after this event. Patient's vital to arrival blood pressure 189/83, which came down to 170/84. Pulse rate 65 temperature 97.9. Blood test shows normal CBC, PT/PTT, normal CMP. CT head revealed no acute bleed, mass effect, no significant abnormality. I personally reviewed CT head, agree with the findings. EKG showed sinus rhythm. Moderate intraventricular conduction delay. Patient says that she has history of migraines with aura in her youth, during her menstrual cycle. She would have an aura lasting for 10 minutes followed by a headache, that would last for 2-3 days with associated nausea vomiting light and noise sensitivity. She found out that her migraines were triggered by chocolates. After menopause, she quit having migraines as she has not had any migraine for about 30-35 years. Patient denies any use of tobacco, alcohol no diabetes. Recently her blood pressure has been running high. Usually she has low blood pressure, runs between 97 to 115 systolics. Patient does not take any antiplatelet medication or blood thinners. She does take some vitamin D, Singulair, and glucosamine. Patient states that she has history of bilateral lid tuck for ptosis in 2008. Patient states that she tried statins for 3 weeks in the past, but developed achiness of her muscles therefore she stopped taking it in the myalgias resolved. Review of Systems Constitutional: Denies chills, Denies fever Eyes: bilateral blurred vision, bilateral diplopia Ears: deny: decreased hearing Ears, nose, mouth and throat: Denies headache, Denies sore throat Cardiovascular: Denies chest pain, Denies shortness of breath Respiratory: Denies cough Gastrointestinal: Denies abdominal pain, Denies diarrhea, Denies nausea, Denies vomiting Genitourinary: Denies dysuria, Denies hematuria Musculoskeletal: Denies myalgias Integumentary: Denies pruritus, Denies rash Neurological: Reports double vision, Denies confusion, Denies memory loss, Denies numbness, Denies weakness Psychiatric: Denies anxiety, Denies depression Endocrine: Denies fatigue, Denies weight change Hematologic/Lymphatic: Denies easy bruising Allergic/Immunologic: Denies persistent infections Past Medical History Past Medical History: Asthma Additional Past Medical History / Comment(s): seasonal ALLERGIES. CYSTOCELE/UTERINE PROLAPSE. VARICOSE VEINS History of Any Multi-Drug Resistant Organisms: None Reported Past Surgical History: Bladder Surgery, Hysterectomy Additional Past Surgical History / Comment(s): CYSTOCELE REPAIR. MARCI EYE LID SX. MARCI CATARACTS, Past Anesthesia/Blood Transfusion Reactions: No Reported Reaction, Motion Sickne ss Past Psychological History: No Psychological Hx Reported Additional Psychological History / Comment(s): PT IS INDEPENDANT with spouse. 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 NO HOME CARE SERVICES, NO MEDICAL EQUIPMENT. Smoking Status: Never smoker Past Alcohol Use History: Rare Past Drug Use History: None Reported - Past Family History Mother Family Medical History: No Reported History Father Family Medical History: Congestive Heart Failure (CHF) Additional Family Medical History / Comment(s): [facility] Medications and Allergies Home Medications Medication Instructions Recorded Confirmed Type Multivitamins, Thera [Multivitamin 1 tab PO DAILY 09/20/15 04/13/22 History (formulary)] Glucosamine Sulfate 500 mg PO DAILY 02/25/20 04/13/22 History Montelukast [Singulair] 10 mg PO DAILY 02/25/20 04/13/22 History Cholecalciferol [Vitamin D3 (25 50 mcg PO DAILY 04/13/22 04/13/22 History Mcg = 1000 Iu)] Allergies Allergy/AdvReac Type Severity Reaction Status Date / Time codeine Allergy headache Verified 04/13/22 11:55 sulfamethoxazole Allergy "does not Verified 04/13/22 11:55 [From Bactrim] work" trimethoprim [From Bactrim] Allergy "does not Verified 04/13/22 11:55 work" Physical Examination - Vital Signs Vital Signs: Vital Signs Temp Pulse Pulse Resp BP BP BP 04/14/22 07:00 98.1 F 63 16 153/72 04/14/22 03:21 143/66 04/14/22 01:47 97.9 F 63 16 174/79 04/13/22 18:33 98.1 F 62 17 143/72 04/13/22 17:50 97.9 F 70 18 200/94 04/13/22 16:27 98.3 F 63 18 169/84 04/13/22 15:05 61 17 167/86 04/13/22 14:02 60 17 149/68 04/13/22 13:12 61 16 149/66 04/13/22 12:00 65 18 167/80 04/13/22 11:00 66 18 166/81 04/13/22 10:00 65 18 154/73 04/13/22 09:00 64 18 164/74 Pulse Ox 04/14/22 07:00 95 04/14/22 03:21 04/14/22 01:47 98 04/13/22 18:33 97 04/13/22 17:50 98 04/13/22 16:27 98 04/13/22 15:05 97 04/13/22 14:02 97 04/13/22 13:12 98 04/13/22 12:00 97 04/13/22 11:00 97 04/13/22 10:00 97 04/13/22 09:00 97 Intake and Output 04/13/22 04/14/22 04/14/22 22:59 06:59 14:59 Intake Total 118 Balance 118 Intake: Oral 118 Other: # Voids 2 2 Weight 73.482 kg Patient is an elderly female, very pleasant, in no acute distress. Patient is alert awake oriented to time place and person. Speech and language functions are normal. Patient can name and repeat very well. No aphasia or dysarthria. Attention, concentration and fund of knowledge is adequate. On cranial nerve examination, pupils are equal, round and reacting to light, visual hermosillo are full on confrontation, with no neglect on double simultaneous stimulation. Extraocular muscles are intact with no nystagmus. Face is symmetric, tongue protrudes to the midline. Palatal elevation and sensation normal, hearing and shoulder shrug normal, facial sensation normal. On muscle strength testing, there is no pronator drift and the strength is normal in arms and legs distally and proximally. Deep tendon reflexes are symmetric biceps 1+, brachioradialis 1+, knees 1, plantars downgoing bilaterally. Sensory to touch is equal with no neglect on double simultaneous stimulation. Cerebellar function showed no ataxia for [id number] testing. No dysdiadochokinesia. No ataxia for [id number] testing on either side. Tone and bulk of muscles normal. Gait deferred.. On general examination, there is no carotid bruit or murmur, S1-S2 audible. Chest is clear on consultation. Abdomen is soft nontender. No organomegaly, roland wel sounds present. Peripheral pulses are present. Very mild peripheral edema. Results - Laboratory Findings CBC and BMP: 04/13/22 08:25 04/13/22 08:25 Abnormal Lab Findings: Abnormal Labs 04/13/22 08:25 Chloride 111 H BUN 23 H Total Protein 6.2 L Assessment and Plan Assessment: * Probable TIA manifesting with transient visual distortion/double vision, that lasted for 20-25 minutes and then resolved. Current neurological examination is normal. * Recent episode of transient jagged lines in the vision 3-4 weeks ago, resolved in 20 seconds. Possible TIA versus late life migraine accompaniments. * Hypertension * Mild hyperlipidemia * Previous history of migraine with aura, in remission for last 35 years. Plan: * Patient had TIA, symptoms completely resolved. Currently her NIH stroke scale is 0. * Patient was loaded with aspirin 324 mg in the ER. We will start aspirin 81 mg daily indefinitely. * Carotid Doppler revealed antegrade flow in both vertebral arteries. Images admission messages 0% stenosis in both ICAs. * Fasting lipid panel with cholesterol 193, LDL 125, HDL 49 and triglycerides 93. Suggest low-dose statins Lipitor 10 mg daily. Patient states that she has previously tried statins and produced myalgias. * Hemoglobin A1c 5.9. * Telemetric monitoring * Optimize control of blood pressure to target <130/80 * 2-D echo pending. * Neurologically clear, if the echo comes back negative. * Thank you for the consult.
[2022-04-14] MEDS: SODIUM CHLORIDE 0.9% 1,000 ML IV SCH (11:46)
--- NOTE | 2022-04-14 13:31 | P.PN ---
Subjective Progress Note Date: 04/14/22 Lisa Palmer, is an 81-year-old female who presented to [facility] emergency room, after having an episode of double vision that lasted about 25 minutes, patient states that she was trying to close 1 eye to see which I was causing the double vision however she could not reach any conclusion her symptoms lasted about 25 minutes and resolved spontaneously, she denies any history of hypertension however her blood pressure was elevated today, she has known history of mild hyperlipidemia, she tried to take statins in the past but she could not tolerate and she stopped taking them shortly after starting. She stated that in the remote past she had migraine headache but has not had any migraine for years, she denies any history of coronary artery disease congestive heart failure TIA or stroke in the past, she stated that she had eye lid surgery for ptosis in the remote past she also had bilateral cataract surgery about 10 years ago She was evaluated in the emergency room vital examination on presentation revealed a temperature of 97.9 pulse 65 respiration 18 blood pressure 189/83 pulse ox 99% on room air Laboratory data reveals a white blood count of 6.9 hemoglobin 12.6 platelet count 309 CMP within normal limits Testing in the emergency room revealed computed tomography scan of the brain done without contrast in the emergency room revealed no acute bleed or mass affect and no significant abnormality seen Patient was admitted to medical floor for further evaluation and treatment. on 04/14/2022 patient was seen and examined on the medical floor she is alert and oriented 3 in no apparent distress there is no fever or chills no headache or dizziness no chest pain no shortness of breath no cough no nausea or vomiting no abdominal pain no diarrhea no blood in the stools no burning with urination no frequency or urgency and no hematuria. There is no weakness or numbness in any of the extremities there is no change in vision or speech or gait. Neurology consultation reviewed, carotid Doppler reviewed, at this time we are waiting for echocardiogram will continue to follow closely Objective - Vital Signs Vital signs: Vital Signs Temp 98.1 F 04/14/22 07:00 Pulse 63 04/14/22 07:00 Resp 16 04/14/22 07:00 BP 153/72 04/14/22 07:00 Pulse Ox 95 04/14/22 07:00 FiO2 Intake & Output 04/13/22 04/14/22 04/14/22 18:59 06:59 18:59 Intake Total 118 100 Balance 118 100 Weight 73.482 kg Intake: Oral 118 100 Other: # Voids 2 - Exam In general patient is alert and oriented x 3 in no distress HEENT head normocephalic and atraumatic Neck is supple no JVD no goiter no lymphadenopathy no carotid bruit Chest examination is clear to auscultation no crackles no wheezing Cardiac exam reveals regular heart sounds S1 and S2 no gallops no murmurs Abdomen is soft nontender no organomegaly with normal bowel sounds Extremity exam reveals no edema no cyanosis or clubbing Neurological examination reveals no gross focal deficits - Labs CBC & Chem 7: 04/13/22 08:25 04/13/22 08:25 Assessment and Plan Plan: Episode of double vision lasting about 25 minutes, possibly related to transient ischemic attack Elevated blood pressure on presentation, will monitor closely and avoid significant drop in blood pressure Underlying history of asthma Underlying history of varicose veins Underlying history of cystocele with uterine prolapse status post hysterectomy and cystocele repair Underlying history of hyperlipidemia with check lipid profile fasting Remote history of bilateral cataract surgery At this time patient is admitted to telemetry floor Echocardiogram and carotid Doppler ordered, Carotid doppler results reviewed, awaiting Echocardiogram Home medications reviewed and reordered Neurology consultation requested Will follow closely
[2022-04-14] MEDS ORDERED: ATORVASTATIN 10 MG TAB PO SCH (21:00)
[2022-04-15] MEDS: MULTIVITAMINS, THERA 1 EACH TAB PO SCH (08:01)
[2022-04-15] MEDS: MONTELUKAST 10 MG TAB PO SCH (08:01)
[2022-04-15] MEDS: amLODIPine 5 MG TAB PO SCH (08:01)
[2022-04-15] MEDS: ASPIRIN 81 MG PO SCH (08:01)
[2022-04-15] MEDS: CHOLECALCIFEROL 25 MCG (1000 IU) TABLET PO SCH (08:01)
[2022-04-15 08:53] VITALS: BP 144/75; PULSE 59; RESP 16; TEMP 98.3
--- NOTE | 2022-04-15 09:13 | P.PN ---
Subjective Progress Note Date: 04/14/22 Patient was seen for a follow-up. Offers no complaints. No recurrence of neurological symptoms. I further obtained detailed history about her visual disturbance. Patient states that when she was having visual disturbance, it involved both eyes. She did close one and then the other eye, and the visual disturbance persisted with bilateral and monocular visions bilaterally. It involved the entire visual field bilaterally with both eyes. Patient claims that she is under a lot of stress because of her 's dementia. She was wondering if her symptoms were related to the stress. Telemetry monitoring showing sinus rhythm. Heart rate in 70s. No arrhythmia. Objective - Vital Signs Vital signs: Vital Signs Temp 98.1 F 04/14/22 15:00 Pulse 65 04/14/22 15:00 Resp 16 04/14/22 15:00 BP 111/66 04/14/22 15:00 Pulse Ox 95 04/14/22 15:00 FiO2 Intake & Output 04/13/22 04/14/22 04/14/22 18:59 06:59 18:59 Intake Total 118 700 Balance 118 700 Weight 73.482 kg Intake: Oral 118 700 Other: # Voids 2 1 - Exam Examination is nonfocal. - Labs CBC & Chem 7: 04/15/22 08:05 04/15/22 08:05 Assessment and Plan Assessment: * Probable TIA manifesting with transient visual distortion/double vision that involved both eyes bilaterally, that lasted for 20-25 minutes and then resolved. Current neurological examination is normal. * Recent episode of transient jagged lines in the vision 3-4 weeks ago, resolved in 20 seconds. Possible TIA versus late life migraine accompaniments. * Hypertension * Mild hyperlipidemia * Previous history of migraine with aura, in remission for last 35 years. Plan: * Patient had possible TIA, symptoms completely resolved. Currently her NIH stroke scale is 0. * Patient was loaded with aspirin 324 mg in the ER. Continue aspirin 81 mg daily indefinitely. * Carotid Doppler revealed antegrade flow in both vertebral arteries. Images and measurement suggest 0% stenosis in both ICAs. * Fasting lipid panel with cholesterol 193, LDL 125, HDL 49 and triglycerides 93. Suggest low-dose statins Lipitor 10 mg daily. She agreed to start Lipitor 10 mg at night. * Hemoglobin A1c 5.9. * Telemetric monitoring showing no arrhythmia. * Optimize control of blood pressure to target <130/80 * 2-D echo revealed normal left ventricular systolic function with EF 55%. No obvious regional wall motion abnormalities. Left atrial size is normal. No embolic source. * Neurologically clear, if the echo comes back negative.
[2022-04-15 10:43] LABS: Basophils # (A) 0.01 X 10*3/uL (0.00-0.10); Basophils % (A) 0.1 %; Eosinophils # (A) 0.27 X 10*3/uL (0.04-0.35); Eosinophils % (A) 2.8 %; HCT 38.9 % (37.2-46.3); HGB 12.7 g/dL (12.0-15.0); Immature Grans, Automated 0.3 %; Lymphocytes # (A) 1.25 X 10*3/uL (0.90-5.00); Lymphocytes % (A) 12.9 %; MCH 30.5 pg (27.0-32.0); MCHC 32.6 g/dL (32.0-37.0); MCV 93.5 fL (80.0-97.0); Mean Platelet Volume 10.6 fL (9.5-12.2); Monocytes # (A) 1.01 X 10*3/uL (0.20-1.00); Monocytes % (A) 10.5 %; NRBC Per 100 WBC 0 /100 WBCS (0.0-0.0); Neutrophils # (A) 7.09 X 10*3/uL (1.80-7.70); Neutrophils % (A) 73.4 %; Platelet Count 341 X 10*3/uL (140-440); RBC 4.16 X 10*6/uL (4.10-5.20); RDW 14.4 % (11.5-14.5); WBC 9.66 X 10*3/uL (4.50-10.00)
[2022-04-15 10:52] LABS: African American GFR (CKD) 44.9 (60.0-200.0); Albumin 4.3 g/dL (3.8-4.9); Albumin/Globulin Ratio 2.05 (1.60-3.17); Anion Gap 9.8 mmol/L (10.00-18.00); BUN/Creat Ratio 21.31 Ratio (12.00-20.00); Blood Urea Nitrogen 27.7 mg/dL (9.0-27.0); Carbon Dioxide 25.2 mmol/L (20.0-27.5); Globulin 2.1 g/dL (1.6-3.3); Non-African American GFR(CKD) 38.7 (60.0-200.0); Potassium 5.1 mmol/L (3.5-5.5); Total Bilirubin 0.5 mg/dL (0.30-1.20); Total Protein 6.4 g/dL (6.2-8.2)
[2022-04-15] MEDS: SODIUM CHLORIDE 0.9% 1,000 ML IV SCH (10:58)
--- NOTE | 2022-04-15 12:58 | CA ---
Transthoracic Echo Report Name: Lisa Palmer Age: 81 Gender: F : 1940 Exam Date: 04/15/2022 09:32 Exam Location: [place] [facility] Ht (in): 65 Wt (lb): 162 Ordering Physician: Gini Contreras MD Attending/Referring Phys: [employer] Cutting [employer] Operator Iris Cha, SINA Procedure CPT: Indications: tia Cardiac Hx: Technical Quality: Contrast 1: Total Dose (mL): Contrast 2: Total Dose (mL): MEASUREMENTS (Male / Female) Normal Values 2D ECHO LV Diastolic Diameter PLAX 3.8 cm 4.2 - 5.9 / 3.9 - 5.3 cm LV Systolic Diameter PLAX 3.6 cm IVS Diastolic Thickness 1.4 cm 0.6 - 1.0 / 0.6 - 0.9 cm LVPW Diastolic Thickness 1.7 cm 0.6 - 1.0 / 0.6 - 0.9 cm LV Relative Wall Thickness 0.8 RV Internal Dim ED PLAX 3.0 cm LA Systolic Diameter LX 3.8 cm 3.0 - 4.0 / 2.7 - 3.8 cm M-MODE Aortic Root Diameter MM 2.9 cm LA Systolic Diameter MM 4.1 cm LA Ao Ratio MM 1.5 MV E Point Septal Separation 0.8 cm AV Cusp Separation MM 1.9 cm FINDINGS Left Ventricle Normal left ventricular size, wall thickness, systolic function with no obvious regional wall motion abnormalities. Left ventricular ejection fraction is estimated at 55 %. Right Ventricle The right ventricle is normal in size and function. Right Atrium The right atrium is normal in size. Left Atrium The left atrium is normal in size. Mitral Valve Structurally normal mitral valve without significant stenosis or prolapse. There is mild mitral regurgitation. Aortic Valve Structurally normal aortic valve without significant sclerosis or stenosis. There is no aortic regurgitation. Tricuspid Valve Structurally normal tricuspid valve without significant stenosis. Pulmonary artery systolic pressure is normal. Pulmonic Valve Structurally normal pulmonic valve without significant stenosis. There is no pulmonic regurgitation. Pericardium Normal pericardium without effusion. Aorta Normal aortic root dimension. CONCLUSIONS Normal left ventricular systolic function Previewed by: Dr. Rene Neville MD (Electronically Signed) Final Date: 15 April 2022 12:57
--- NOTE | 2022-04-15 13:42 | P.DS ---
Providers Date of admission: 04/13/22 10:37 Expected date of discharge: 04/15/22 Attending physician: Gini Contreras Consults: 04/13/22 10:34 Consult Physician Routine Consulting Provider: Desi Hannon Consult Reason/Comments: tia Do you want consulting provider notified?: Yes Primary care physician: Fabiana Aleman [facility] Course: Diagnosis on discharge: Episode of double vision lasting about 25 minutes, possibly related to transient ischemic attack Elevated blood pressure on presentation, will monitor closely and avoid significant drop in blood pressure Underlying history of asthma Underlying history of varicose veins Underlying history of cystocele with uterine prolapse status post hysterectomy and cystocele repair Underlying history of hyperlipidemia with check lipid profile fasting Remote history of bilateral cataract surgery Hospital course: Lisa Palmer, is an 81-year-old female who presented to [facility] emergency room, after having an episode of double vision that lasted about 25 minutes, patient states that she was trying to close 1 eye to see which I was causing the double vision however she could not reach any conclusion her symptoms lasted about 25 minutes and resolved spontaneously, she denies any history of hypertension however her blood pressure was elevated today, she has known history of mild hyperlipidemia, she tried to take statins in the past but she could not tolerate and she stopped taking them shortly after starting. She stated that in the remote past she had migraine headache but has not had any migraine for years, she denies any history of coronary artery disease congestive heart failure TIA or stroke in the past, she stated that she had eye lid surgery for ptosis in the remote past she also had bilateral cataract surgery about 10 years ago She was evaluated in the emergency room vital examination on presentation revealed a temperature of 97.9 pulse 65 respiration 18 blood pressure 189/83 pulse ox 99% on room air Laboratory data reveals a white blood count of 6.9 hemoglobin 12.6 platelet count 309 CMP within normal limits Testing in the emergency room revealed computed tomography scan of the brain done without contrast in the emergency room revealed no acute bleed or mass affect and no significant abnormality seen Patient was admitted to medical floor for further evaluation and treatment. on 04/14/2022 patient was seen and examined on the medical floor she is alert and oriented 3 in no apparent distress there is no fever or chills no headache or dizziness no chest pain no shortness of breath no cough no nausea or vomiting no abdominal pain no diarrhea no blood in the stools no burning with urination no frequency or urgency and no hematuria. There is no weakness or numbness in any of the extremities there is no change in vision or speech or gait. Neurology consultation reviewed, carotid Doppler reviewed, at this time we are waiting for echocardiogram will continue to follow closely Patient Condition at Discharge: Fair Plan - Discharge Summary Discharge Rx Participant: Yes New Discharge Prescriptions: New Aspirin 81 mg PO DAILY tab Rosuvastatin [Crestor] 5 mg PO DAILY 30 Days #30 tablet amLODIPine [Norvasc] 5 mg PO DAILY tab Continue Multivitamins, Thera [Multivitamin (formulary)] 1 tab PO DAILY Montelukast [Singulair] 10 mg PO DAILY Glucosamine Sulfate 500 mg PO DAILY Cholecalciferol [Vitamin D3 (25 Mcg = 1000 Iu)] 50 mcg PO DAILY Discharge Medication List Multivitamins, Thera [Multivitamin (formulary)] 1 tab PO DAILY 09/20/15 [His tory] Glucosamine Sulfate 500 mg PO DAILY 02/25/20 [History] Montelukast [Singulair] 10 mg PO DAILY 02/25/20 [History] Cholecalciferol [Vitamin D3 (25 Mcg = 1000 Iu)] 50 mcg PO DAILY 04/13/22 [History] Aspirin 81 mg PO DAILY tab 04/15/22 [Rx] Rosuvastatin [Crestor] 5 mg PO DAILY 30 Days #30 tablet 04/15/22 [Rx] amLODIPine [Norvasc] 5 mg PO DAILY tab 04/15/22 [Rx] Follow up Appointment(s)/Referral(s): Fabiana Aleman MD [Primary Care Provider] - 1-2 days
== END 2022-04-15 14:35 ==
LOC: EC 06:36 → 6NMEDSUR 10:37
PROVIDERS: ADMIT Internal Medicine; ATTEND Internal Medicine
DX: G45.9 Transient cerebral ischemic attack, unspecified (principal); H53.2 Diplopia; H02.402 Unspecified ptosis of left eyelid; J45.909 Unspecified asthma, uncomplicated; I10 Essential (primary) hypertension; E78.5 Hyperlipidemia, unspecified; I83.90 Asymptomatic varicose veins of unspecified lower extremity; Z86.69 Personal history of other diseases of the nervous system and sense organs; Z98.42 Cataract extraction status, left eye; Z98.41 Cataract extraction status, right eye; Z79.899 Other long term (current) drug therapy; Z88.2 Allergy status to sulfonamides; Z88.5 Allergy status to narcotic agent
CPT/HCPCS: 99285; 36415; 93005; 93306; 80061; 80053 ×2; 83735; 85025 ×2; 85610; 85730; 93880; 70450; G0378 ×3